=== PATIENT | female | born 1985 | race Asian ===

== ENCOUNTER 2020-11-21 08:41 | Outpatient (RCR) | payer OTHER, SELFPAY ==
[2020-10-24 09:34] VITALS: BP 105/64; PULSE 76
[2020-10-31 08:39] VITALS: BP 103/69; PULSE 72
[2020-11-14 09:37] VITALS: BP 115/69; PULSE 84
[2020-11-21 09:28] VITALS: BP 106/60; PULSE 79
== END 2020-12-01 07:51 | disposition home or self-care (01) ==
LOC: ANHOBOP 08:41
PROVIDERS: PCP Family Medicine; Visit Provider Obstetrics & Gynecology
DX: O24.419 Gestational diabetes mellitus in pregnancy, unspecified control (principal); Z3A.34 34 weeks gestation of pregnancy; Z3A.35 35 weeks gestation of pregnancy; Z3A.36 36 weeks gestation of pregnancy; Z3A.37 37 weeks gestation of pregnancy; Z3A.38 38 weeks gestation of pregnancy
CPT/HCPCS: 59025

== ENCOUNTER 2020-11-30 05:52 | Inpatient (IN) | payer OTHER, SELFPAY ==
[2020-11-30] VITALS (62 sets, daily range): BP systolic 69–146; BP diastolic 47–95; PULSE 57–136; RESP 16; TEMP 36–36.6; O2SAT 100; BMI 27.2
[2020-11-30 06:42] LABS: Basophils Percent Auto 0.5 % (0.2-1.2); Eosinophils Absolute Auto 0.1 K/mm3 (0-0.3); Eosinophils Percent Auto 1.5 % (0-4.4); Hematocrit 38.7 % (37.0-47.0); Immature Granulocyte Percent A 1.2 % (0-0.5); Lymphocytes Percent Auto 18.6 % (18.3-44.2); Mean Corpuscular HGB Conc 33.6 g/dl (32-36); Mean Corpuscular Hemoglobin 30.9 pg (26-34); Mean Corpuscular Volume 91.9 fl (80-100); Mean Platelet Volume 10.9 fl (7.4-10.4); Monocytes Absolute Auto 0.4 K/mm3 (0.1-0.6); Monocytes Percent Auto 5.5 % (2.6-8.5); Neutrophils Absolute Auto 5.9 K/mm3 (1.3-6.7); Neutrophils Percent Auto 72.7 % (45.5-73.1); Platelet Count Result 142 k/mm3 (150-375); Red Blood Count 4.21 M/mm3 (4.2-5.4); Red Cell Distribution Width 13.3 % (11.5-14.5); White Blood Count 8.1 K/mm3 (4.5-10.0)
--- NOTE | 2020-11-30 06:48 | LDADM ---
This patient, Lydia English, was admitted to Labor/Delivery/Recovery 103 on 11/30/20 at 05:52. Plans for labor, pain management and were discussed with patient. Patient/family oriented to hospital policies and general routines including ID bracelet, bed and alarms, visiting hours, pain management, procedures, bathroom and other care routines, personal items, smoking policy, room service/diet and guest tray routines, security routines, and visiting hours. Patient/Family are encouraged to report perceived risks to care and to ask questions if they do not understand what they are told or what they should do. See OBIX for further documentation.
[2020-11-30] MEDS: OXYTOCIN 30 UNITS/NS 500 ML 30 UNITS/500 ML BAG IV CONT (06:55)
[2020-11-30] MEDS: LACTATED RINGERS 1,000 ML 125 ML IV CONT ×2 (06:55→10:03)
[2020-11-30 07:07] LABS: Glucose Point of Care 143 mg/dl (65-105)
--- NOTE | 2020-11-30 08:50 | PM.IMHP ---
H&P: HPI History of Present Illness Date/Time: 11/30/20 08:45 Lydia is a 35yo @ 39.2wks (HARSHAD 12/05/20) who presents for induction of labor due to A2GDM. She has had regular and care. She reports good movement. She has been having irregular contractions. She denies VB or LOF. She has been started on pitocin augmentation. Her has been complicated by: - A2GDM on insulin - Polyhydramnios - Mild anemia on iron Chief Complaint: induction of labor Review of Systems Review of Systems: All systems reviewed & are unremarkable except as noted in HPI and below (HPI) [facility] Family History Family History (Updated 11/14/20 @ 09:28 by Pamela Sneed RN) Grandparent Diabetes mellitus Mother Hypertension Mother Polycystic kidney disease Father Heart block bundle branch Social History Social History Smoking status: Former smoker Smoking end date: 02/04/20 Substance use: never Gender identity (if verbalized by the patient): Female Sexual Orientation (if Verbalized by the Patient): Straight or Heterosexual Spiritual care concerns: No Meds Home Medications and Allergies Home Medications Medication Instructions Recorded Confirmed Type insulin glargine [Lantus U-100 8 unit SUBCUT QPM 10/24/20 11/30/20 History Insulin] ferrous sulfate 27 mg PO DAILY 11/14/20 11/30/20 History insulin lispro [Humalog U-100 6 unit SUBCUT QACDINNER 11/14/20 11/30/20 History Insulin] prenat.vits,hortensia,[id number] 1 tablet PO DAILY 11/14/20 11/30/20 History [ Vitamin] Allergies Allergy/AdvReac Type Severity Reaction Status Date / Time No Known Allergies Allergy Verified 11/14/20 09:29 Vital Signs Vital Signs - 24 hr 11/30/20 06:31 11/30/20 06:46 11/30/20 07:16 Pulse Rate 81 81 84 Blood Pressure 111/67 120/81 125/75 11/30/20 07:31 11/30/20 07:46 Pulse Rate 72 77 Blood Pressure 106/67 108/75 Exam Const: General: cooperative, healthy appearing, comfortable and no acute distress Resp: Effort & Inspection: normal respiratory effort and able to speak in complete sentences Cardio: Rate: regular rate GI: Inspection: normal to inspection GI Palp: No abdominal tenderness and Yes Soft to palpation : Other: FHT's: 140's/ mod masha/ + accels/ occasional variable decels - cat 2 but reassuring TOCO: ctx's q3-4min Cervix: 1.5/70/-1 Membranes: AROM, clear 0845 Presentation: cephalic Skin: General skin exam: normal color Neuro: General: patient oriented x3 Extrem: General: normal to inspection Psych: Appearance: grossly normal Affect: normal affect Attitude: cooperative H&P: Results Labs Labs: Short CBC 11/30/20 Range/Units 06:30 WBC 8.1 (4.5-10.0) K/mm3 Hgb 13.0 (12.0-15.0) g/dL Hct 38.7 (37.0-47.0) % Plt Count 142 L (150-375) k/mm3 Assessment and Plan Assessment and plan (1) Gestational diabetes: Code(s): O24.419 - Gestational diabetes mellitus in , unspecified control Status: Acute Assessment and Plan: - Admit to L&D for IOL due to A2GDM - BS monitoring q4h while in latent phase; q2h while in active labor - Pitocin augmentation per protocol - Continuous monitoring; currently reassuring - Anesthesia consult PRN pain - GBS negative
--- NOTE | 2020-11-30 08:50 | WPDHPUPDATE1 ---
History and Physical Update Update Date/Time: 11/30/20 08:50 History and Physical has been reviewed, including an updated exam of the patient. There are NO changes in the patient's condition. Risks, benefits, and alternatives have been discussed and questions answered. Patient agrees to proceed with procedure.
--- NOTE | 2020-11-30 10:09 | WPDANESEPP ---
Anes - Eval Pre Procedure Procedure: labor epidural Date/Time: 11/30/20 10:09 Surgeon: dorian Pre Op Diagnosis: Induction of Labor Patient Data Age: 35 Gender: F Height: 1.57 m Weight: 67.5 kg Last Vital Signs Pulse 72 11/30/20 10:01 BP 124/83 11/30/20 10:01 Allergies Allergy/AdvReac Type Severity Reaction Status Date / Time No Known Allergies Allergy Verified 11/14/20 09:29 Home Medications Medication Instructions Recorded Confirmed Type insulin glargine [Lantus U-100 8 unit SUBCUT QPM 10/24/20 11/30/20 History Insulin] ferrous sulfate 27 mg PO DAILY 11/14/20 11/30/20 History insulin lispro [Humalog U-100 6 unit SUBCUT QACDINNER 11/14/20 11/30/20 History Insulin] prenat.vits,hortensia,dce-mbra-wpxqo 1 tablet PO DAILY 11/14/20 11/30/20 History [ Vitamin] Laboratory Tests 11/30/20 11/30/20 11/30/20 06:30 06:30 06:30 WBC 8.1 K/mm3 K/mm3 (4.5-10.0) RBC 4.21 M/mm3 M/mm3 (4.2-5.4) Hgb 13.0 g/dL g/dL (12.0-15.0) Hct 38.7 % % (37.0-47.0) MCV 91.9 fl fl (80-100) MCH 30.9 pg pg (26-34) MCHC 33.6 g/dl g/dl (32-36) RDW 13.3 % % (11.5-14.5) Plt Count 142 k/mm3 L k/mm3 (150-375) MPV 10.9 fl H fl (7.4-10.4) Immature Gran % (Auto) 1.2 % H % (0-0.5) Neut % (Auto) 72.7 % % (45.5-73.1) Lymph % (Auto) 18.6 % % (18.3-44.2) Rhea % (Auto) 5.5 % % (2.6-8.5) Eos % (Auto) 1.5 % % (0-4.4) Baso % (Auto) 0.5 % % (0.2-1.2) Lymph # (Auto) 1.50 K/mm3 K/mm3 (0.9-3.2) Rhea # (Auto) 0.4 K/mm3 K/mm3 (0.1-0.6) Eos # (Auto) 0.1 K/mm3 K/mm3 (0-0.3) Baso # (Auto) 0.0 K/mm3 K/mm3 (0.0-0.1) Abs Immat Gran (auto) 0.10 K/mm3 H K/mm3 (0.00-0.031) Absolute Neuts (auto) 5.9 K/mm3 K/mm3 (1.3-6.7) Absolute Nucleated RBC 0.0 K/mm3 K/mm3 (0.0-0.012) Nucleated RBC % 0.0 % % (0.0-0.2) POC Capillary Glucose RPR Pending Blood Type O Positive Antibody Screen Negative 11/30/20 06:46 WBC RBC Hgb Hct MCV MCH MCHC RDW Plt Count MPV Immature Gran % (Auto) Neut % (Auto) Lymph % (Auto) Rhea % (Auto) Eos % (Auto) Baso % (Auto) Lymph # (Auto) Rhea # (Auto) Eos # (Auto) Baso # (Auto) Abs Immat Gran (auto) Absolute Neuts (auto) Absolute Nucleated RBC Nucleated RBC % POC Capillary Glucose 143 mg/dl H mg/dl (65-105) RPR Blood Type Antibody Screen Patient hx anesthesia problems: none Family hx anesthesia problems: none [facility] Family History Family History (Updated 11/14/20 @ 09:28 by Pamela Sneed RN) Grandparent Diabetes mellitus Mother Hypertension Mother Polycystic kidney disease Father Heart block bundle branch Social History Social History Smoking status: Former smoker Smoking end date: 02/04/20 Substance use: never Gender identity (if verbalized by the patient): Female Sexual Orientation (if Verbalized by the Patient): Straight or Heterosexual Spiritual care concerns: No Exam Day of Procedure 11/30/20 10:09
[2020-11-30 10:31] LABS: Glucose Point of Care 74 mg/dl (65-105)
--- NOTE | 2020-11-30 13:09 | PM.OBPRVD ---
OB - Delivery Note Procedure Delivery date: 11/30/20 events: Gestational Diabetes (on insulin), Labor Induction and Polyhydramnios Intrapartal events: Precipitous Labor < 3 hours Induction method: per pitocin protocol Delivery augmentation: rupture of membranes Delivery monitor: external FHT and external uterine Route of delivery: Episiotomy description: Right Mediolateral Laceration Description: Periurethral (bilateral) and Perineal - 2nd Degree Delivery repair: vicryl Specimen: Yes Quantitative Blood Loss (ml): 300 Anesthesia type: Epidural Disposition: floor [place] Baby Date of : 11/30/20 Time of : 12:37 Weeks of gestation at delivery: 39 (.3) gender: Female Weight (pounds): 6 Weight (ounces): 5 presentation: vertex position: Left Occiput Anterior Placenta delivery description: Expressed cord vessel description: 3 Vessels score one minute: 9 score five minutes: 9 Narrative: Lydia rapidly progressed to complete dilation with strong desire to push. She pushed for approximately 30 minutes. The introitus was noted to be extremely small, with minimal stretching. Patient had pushed for approximately 3 contractions and was unable to deliver the head over the perineum and was in significant pain. Patient was counseled for small right mediolateral episiotomy, and agreed. A small right mediolateral episiotomy was made and with the next push, she delivered the head. She easily delivered the shoulders and body without complications. A short umbilical cord was noted, therefore the umbilical cord was clamped and cut. The infant had spontaneous cry and was then placed skin to skin. A small segment of the cord was collected for cord gases. The remaining cord blood was collected for typing. With Pitocin running and gentle downward traction on the cord, the placenta delivered without complications. Bimanual massage was performed and good uterine tone with minimal bleeding was noted. The cervix, vagina, and perineum were examined. The right mediolateral episiotomy which was noted to be a second-degree laceration that extended into the left labia. There were also bilateral periurethral lacerations. The second-degree laceration was repaired in the normal fashion using 2 0 Vicryl. The bilateral periurethral lacerations were noted to be bleeding and therefore reapproximated using two separate 3 0 Vicryl U stitches. Bimanual massage was once again performed and a small amount of clots were removed however uterus was then found to be well contracted with minimal bleeding. Sponge, lap, instrument, and needle counts were correct at the end of the procedure. Mom and baby were left bonding in the birthing suite in a stable condition.
[2020-11-30] MEDS: OXYTOCIN 30 UNITS/NS 500 ML 30 UNITS/500 ML BAG 125 UNITS IV CONT (13:13)
[2020-11-30] MEDS: WITCH HAZEL 40 PADS 1 PAD TOPICAL (14:44)
[2020-11-30] MEDS: BENZOCAINE 20% AER SPR (*SP) 56 GM CAN 1 SPRAY TOPICAL (14:44)
[2020-11-30] MEDS: IBUPROFEN 600 MG TABLET PO (17:20)
[2020-11-30] MEDS: DOCUSATE SODIUM 100 MG CAPSULE PO (17:21)
[2020-12-01] MEDS: IBUPROFEN 600 MG TABLET PO ×2 (00:01→07:26)
[2020-12-01 00:09] VITALS: BP 136/66; PULSE 74; RESP 18; TEMP 36.7
[2020-12-01 04:30] VITALS: BP 121/70; PULSE 71; RESP 16; TEMP 36.9
[2020-12-01] MEDS: ACETAMINOPHEN 325 MG TABLET 650 MG PO (04:31)
[2020-12-01 05:51] LABS: Hematocrit 37.8 % (37.0-47.0); Hemoglobin 12.2 g/dL (12.0-15.0)
[2020-12-01] MEDS: DOCUSATE SODIUM 100 MG CAPSULE PO (07:25)
[2020-12-01] MEDS: MULTIVIT/MIN/PREN/FOL AC/IRON TABLET 1 TAB PO (07:25)
[2020-12-01 07:51] VITALS: BP 116/64; PULSE 73; RESP 18; TEMP 36.4; O2SAT 100
--- NOTE | 2020-12-01 07:57 | WPDANLDPN2 ---
Anes-Prog Note L&D Date/Time: 12/01/20 07:57 Comfortable throughout: labor and delivery Neuraxial method: epidural Epidural/Spinal procedure site: clean & non-tender Neuro status: Neuro function grossly intact. Cardiovascular status: normal Respiratory status: normal Airway patency: baseline Mental status: baseline Post-Op hydration status: normal Vital Signs: Last Vital Signs Temp 98.5 F 12/01/20 04:30 Pulse 71 12/01/20 04:30 Resp 16 12/01/20 04:30 BP 121/70 12/01/20 04:30 Pulse Ox 100 11/30/20 21:23 Pain score (VAS): 0 I/O: Intake & Output 11/30/20 11/30/20 12/01/20 15:59 23:59 07:59 Intake Total 2500 Output Total 380 Balance 2120 Post-procedural complaints: none Patient feedback: Patient satisfied with anesthetic care.
--- NOTE | 2020-12-01 08:05 | PC.NURSE ---
Mother called out for assist with feeding, reporting is sleepy and not waking for feeding. Mother has sore nipples bilateral, with small scabbing to tip. Discussed the importance of a deep latch for her comfort and increase intake Nipple care reviewed of lanolin after feedings, warm compresses and gel pads as needed. Mother breastfed first child after several days due to transferred to NICU. Reviewed feeding cues, frequencies, duration of feedings, feeding elimination flow sheet, and signs of adequate intake. Demonstrated stimulation techniques to wake infant for feeding. Assisted with infant to breast. Reviewed positioning/alignment in cross cradle, holding breast in ?U? hold and guided asymmetrical latch on. Several attempts before able to latch correctly. Small amount of formula to nipple to entice to suckle. Infant nursed eagerly, with steady draws and frequent swallowing noted. Reviewed signs of a correct latch, effective nursing and suck swallow ratio. would slip to shallow latch, mother reports tenderness. Demonstrated how to adjust latch more deeply while feeding. Mother reports she can feel change in latch and has no tenderness. Advised to hold breast during entire feeding to assist with maintaining deep latch. Suggested mother stimulate while feeding to increase stimulate, increase intake and to assist with maintaining deep latch.
[2020-12-01 08:25] LABS: Rapid Plasma Reagin Non-Reactive (NonReactive)
--- NOTE | 2020-12-01 08:30 | PM.OBPNVD ---
OB - PN: Subj Subjective Date/time seen: 12/01/20 08:30 PPD#1 Lydia reports doing well today. She reports her pain is controlled w/ PO meds. She reports her bleeding is light. She has tolerated regular diet. She has ambulated, voided, and passed gas. She denies symptoms of anemia. She is breast feeding. She would like to go home today. She denies CP, SOB, fever, chills, N/V, headaches, vision changes, dizziness or palpitations. OB - PN: Obj Data Labs CBC & Chem 7: 12/01/20 04:25 Labs: Laboratory Results - last 24 hr 11/30/20 11/30/20 12/01/20 06:30 10:28 04:25 Hgb 12.2 Hct 37.8 POC Capillary Glucose 74 RPR Non-reactive OB - PN A/P Assessment and Plan (1) Vaginal delivery: Code(s): O80 - Encounter for full-term uncomplicated delivery Status: Acute Plan day: 1 Plan: routine care and discharge home Comments: - f/u 4 wks - ER return precautions: fever, n/v/abd pain, HTN, bleeding - Pelvic rest, take meds as prescribed. Time Spent With Patient Time: Total time spent is greater than 50% in coordination of care (as documented) at patient's floor/unit and/or counseling patient: Review of Systems Review of Systems: All systems reviewed & are unremarkable except as noted in HPI and below (HPI) Exam Const: General: cooperative, healthy appearing, comfortable and no acute distress Resp: Effort & Inspection: normal respiratory effort and able to speak in complete sentences Auscultation: clear to auscultation bilaterally Cardio: Rate: regular rate GI: Inspection: normal to inspection and non-distended GI Palp: No abdominal tenderness and Yes Soft to palpation : Other: fundus firm Skin: General skin exam: normal color Neuro: General: patient oriented x3 Extrem: General: normal to inspection Psych: Appearance: grossly normal Affect: normal affect Attitude: cooperative
--- NOTE | 2020-12-01 10:00 | PC.NURSE ---
Patient viewed the discharge video Mother & Baby Care, The First Two Weeks . Patient was given the opportunity and encouraged to ask questions. Patient verbalized understanding of information shared and has been given the mother/baby guide for home reference.
--- NOTE | 2020-12-01 11:18 | PC.NURSE ---
Self care and infant care discharge instructions given including follow up visit date and time. Mother verbalized understanding. No questions or concerns. Very pleasant and cooperative.
[2020-12-01 12:22] VITALS: BP 108/56; PULSE 77; RESP 16; TEMP 36.9; O2SAT 98
[2020-12-01] MEDS: TETANUS,DIPHTHERIA,AC PERTUSSIS ADULT (0.5 ML) BOOSTRIX IM (12:36)
[2020-12-02 10:52] VITALS: BP 113/72; PULSE 64; RESP 16; TEMP 36.6; O2SAT 99
--- NOTE | 2020-12-09 14:00 | PM.OBDSVD ---
DS: Admitting Diagnosis Admitting Diagnosis Admitting Diagnosis: induction of labor DS: Discharge Diagnosis Discharge Diagnosis (1) Vaginal delivery: Code(s): O80 - Encounter for full-term uncomplicated delivery Status: Acute (2) Gestational diabetes: Qualifiers: Gestational diabetes mellitus control: insulin-controlled Trimester: third trimester Qualified Code(s): O24.414 - Gestational diabetes mellitus in , insulin controlled Code(s): O24.419 - Gestational diabetes mellitus in , unspecified control Status: Acute OB - DS: Summary OB Procedures : NST and Ultrasound OB Procedures Intrapartum: Spontaneous Vag Delivery OB Procedures: : None Peripartum Data Delivery Method: Natural Vaginal Episiotomy description: Right Mediolateral complications: none 1: Gender: Female Disposition of : home Status at Discharge Functional status at discharge: independent ambulation Overall status at discharge: patient is back to baseline Time Spent with Patient Time attestation: Total time spent providing and/or coordinating discharge services: Time spent: Less than 30 minutes Exam Const: General: cooperative, healthy appearing and comfortable Resp: Effort & Inspection: normal respiratory effort and able to speak in complete sentences Auscultation: clear to auscultation bilaterally Cardio: Rate: regular rate GI: Inspection: normal to inspection and non-distended GI Palp: No abdominal tenderness and Yes Soft to palpation : Other: fundus firm Skin: General skin exam: normal color Neuro: General: patient oriented x3 Extrem: General: normal to inspection Psych: Appearance: grossly normal Affect: normal affect Attitude: cooperative DS: Data Data Completed and Pending Completed studies during hospitalization: Pending at discharge 11/30/20 13:33 Surgical [PTH] Routine Discharge Plan Discharge Attending physician on discharge: Sylvia Foy Discharging Clinician: Syvlia Foy Anticipated Discharge Date/Time: 12/01/20 16:00 Patient Disposition: Home, Self-Care Activity: pelvic rest Diet: regular Discharge Instructions: Education: Mom and Baby Guide Given to: Mother Follow-Up: Call your delivering provider's office for an appointment to be seen in: 4 Weeks Mom and baby should come to the [facility] for the follow-up appointment. Appointment Date/Time: Wednesday, December 02, 2020 at 11:00 am What to expect at your follow-up visit: Blood Pressure Check Physical Assessment Call [phone] if you are unable to keep your appointment time. BREAST CARE: * Wear a snug supportive bra. * For engorgement discomfort: Breast Feeding: * Apply warm moist washcloths * Express milk as needed to relieve engorgement * Wear loose clothing * For sore nipples: * Identify correct latch-on * Apply warm moist washcloths before and after nursing * Air dry nipples after nursing * May apply Lansinoh cream to nipples EPISIOTOMY/PERINEAL CARE: * Until bleeding stops, use your cristian bottle after urinating * Change your pad frequently throughout the day * You may take sitz baths several times a day (fill your bathtub with warm water and soak for 20 minutes.) Do NOT bathe in the water * No tub baths until seen by your physician - You may shower ACTIVITY: * Rest as much as possible. * Do not exercise or lift anything heavier than your baby (such as laundry or other children.) * Avoid stairs or driving as much as possible. * Do not put anything into the vagina. No douching, tampons, or sexual activity until seen by physician. NOTIFY PHYSICIAN IF YOU HAVE ANY QUESTIONS OR IF ANY OF THE FOLLOWING SYMPTOMS OCCUR: * If your episiotomy becomes red, swollen, or more painful than what you
== END 2020-12-01 16:07 | disposition home or self-care (01) | DRG 807 ==
LOC: ANHLDR 06:01 → ANHOB2 15:19
PROVIDERS: Admitting Provider Obstetrics & Gynecology; PCP Family Medicine; Visit Provider Obstetrics & Gynecology
DX: O24.424 Gestational diabetes mellitus in childbirth, insulin controlled (principal); Z37.0 Single live birth; O40.3XX0 Polyhydramnios, third trimester, not applicable or unspecified; O99.02 Anemia complicating childbirth; D64.9 Anemia, unspecified; O62.3 Precipitate labor; O71.82 Other specified trauma to perineum and vulva; O70.1 Second degree perineal laceration during delivery; O76 Abnormality in fetal heart rate and rhythm complicating labor and delivery; Z3A.39 39 weeks gestation of pregnancy
CPT/HCPCS: 36415; 82948; 85014; 85018; 85025; 86592; 86850; 86900; 86901; 88307; 90715; A9270; J2590; J2795; J7120

== ENCOUNTER → 2022-02-28 | Emergency (ER) | payer SELFPAY ==
[2022-02-28 19:35] VITALS: BP 144/115; PULSE 87; RESP 16; O2SAT 100
--- NOTE | 2022-02-28 19:39 | ECG_ITS ---
Measurements Intervals [place] Rate: 91 P: 64 [place]: 142 QRS: 62 QRSD: 78 T: 41 QT: 341 QTc: 421 Interpretive Statements SINUS RHYTHM RSR' IN V1 OR V2, PROBABLY NORMAL VARIANT BORDERLINE T WAVE ABNORMALITY- ANTERIOR LEADS BORDERLINE ECG NO PREVIOUS ECG AVAILABLE FOR COMPARISON Electronically Signed On 03-01-2022 6:58:03 CDT by Delbert Musa D.O.
--- NOTE | 2022-02-28 19:41 | ED.GENADULT ---
HPI - General Adult General Chief complaint: Psychiatric Symptoms Stated complaint: SI, ETOH History of Present Illness HPI narrative: 37-year-old female presented to the emergency department for evaluation for suicidal ideation. Patient does admit to drinking a bottle of wine today. Patient did make a suicidal statement. When asked if patient was still suicidal and she did not answer. When asked what her plan was patient states she is waiting for the perfect plan needs to make sure that her and children are taking care of. Patient did not deny making suicidal statements and did not denies any current suicidal ideation. Patient is intoxicated. Related Data Allergies Allergy/AdvReac Type Severity Reaction Status Date / Time No Known Allergies Allergy Verified 06/15/21 14:25 Review of Systems Review of Systems: CONSTITUTIONAL: Denies fever, chills, or sweats. EYES: Denies visual changes, redness, or discharge. ENT: Denies rhinorrhea, congestion, sore throat, or otalgia. CARDIOVASCULAR: Denies chest pain, palpitations, or edema. RESPIRATORY: Denies cough or dyspnea. GASTROINTESTINAL: Denies abdominal pain, nausea, vomiting, or diarrhea. GENITOURINARY: Denies dysuria or hematuria. SKIN: Denies rash or itching. MUSCULOSKELETAL: Denies back pain, joint pain, or myalgia. NEUROLOGIC: Denies headache, numbness, or weakness. PSYCHIATRIC: See HPI PMF Family History Family History Grandparent Diabetes mellitus Mother Hypertension Mother Polycystic kidney disease Father Heart block bundle branch Social History Social History Smoking status: Former smoker Smoking end date: 02/04/20 Substance use: never Substance use type: does not use Gender identity (if verbalized by the patient): Female Sexual Orientation (if Verbalized by the Patient): Straight or Heterosexual Spiritual care concerns: No Exam Narrative: APPEARANCE: Well appearing, no pain, no distress, well-nourished. HEAD: normocephalic, atraumatic. EYES: PERRLA/EOMI, conjunctivae clear. NOSE: Normal no drainage THROAT: Pharynx clear, no exudate. NECK: Supple. No adenopathy, no masses. RESPIRATORY: Airway patent, respirations nonlabored. Clear to auscultation bilaterally, no rales, rhonchi, wheezing. CARDIOVASCULAR: Regular rate and rhythm without murmurs rubs or gallops. ABDOMINAL: Soft, nontender, nondistended, normal bowel sounds MUSCULOSKELETAL: Moves all extremities. Strength/ROM intact, No edema, No calf tenderness. NEURO: Alert. Cranial nerves II through XII intact. Grossly intact SKIN: Warm, dry. Normal Color Course Course Emergency Course: Patient was evaluated by the crisis counselor and patient states she does feel overworked but denies any current suicidal thoughts. Patient will have close follow-up with counseling. Patient was comfortable with the plan for discharge and close follow-up. Reevaluation(s) Reevaluation #1: Patient is medically cleared for evaluation by the crisis counselor. Patient is also medically cleared for inpatient psychiatric placement as needed. Vital Signs Vital signs: Vital Signs Pulse Rate 87 02/28/22 19:35 Respiratory Rate 16 02/28/22 19:35 Blood Pressure 144/115 H 02/28/22 19:35 Pulse Oximetry 100 02/28/22 19:35 Pulse Rate 87 02/28/22 19:35 Respiratory Rate 16 02/28/22 23:31 Blood Pressure 113/85 02/28/22 23:31 Pulse Oximetry 100 02/28/22 23:31 Medical Decision Making Vital Signs Vital Signs: Vital Signs Pulse Rate 87 02/28/22 19:35 Respiratory Rate 16 02/28/22 19:35 Blood Pressure 144/115 H 02/28/22 19:35 Pulse Oximetry 100 02/28/22 19:35 Pulse Rate 87 02/28/22 19:35 Respiratory Rate 16 02/28/22 23:31 Blood Pressure 113/85 02/28/22 23:31 Pulse Oximetry 100 02/28/22 23:31 Lab Data Lab results reviewed: Yes I
[2022-02-28 20:15] LABS: Appearance Urine Clear (Clear); Bilirubin Urine Negative (Negative); Blood Urine Negative (Negative); Color Urine Yellow (Yellow); Glucose Urine UA Negative (Negative); Ketones Urine Negative (Negative); Leukocyte Esterase Ur Negative LEU/UL (Negative); Nitrate Urine Negative (Negative); Protein Urine Negative (Negative); Urobilinogen Urine 0.2 mg/dL (<2.0); pH Urine 5.5 (5.0-9.0)
[2022-02-28 20:25] LABS: Add Urine Microscopic? YES; Mucus Urine Rare /lpf; RBC Urine 0-2 /hpf (0-2); Squamous Epithelial Cell Urine Occasional /hpf (Few); WBC Urine 0-3 /hpf
[2022-02-28 20:27] LABS: Basophils Percent Auto 0.6 % (0.2-1.2); Eosinophils Absolute Auto 0.2 K/mm3 (0-0.3); Eosinophils Percent Auto 4.3 % (0-4.4); Hematocrit 41.9 % (37.0-47.0); Hemoglobin 13.5 g/dL (12.0-15.0); Immature Granulocyte Absolute 0.01 K/mm3 (0.00-0.031); Immature Granulocyte Percent A 0.2 % (0-0.5); Lymphocytes Absolute Auto 1.18 K/mm3 (0.9-3.2); Lymphocytes Percent Auto 23.9 % (18.3-44.2); Mean Corpuscular HGB Conc 32.2 g/dl (32-36); Mean Corpuscular Hemoglobin 28.6 pg (26-34); Mean Corpuscular Volume 88.8 fl (80-100); Mean Platelet Volume 9.6 fl (7.4-10.4); Monocytes Absolute Auto 0.3 K/mm3 (0.1-0.6); Monocytes Percent Auto 6.9 % (2.6-8.5); Neutrophils Absolute Auto 3.2 K/mm3 (1.3-6.7); Neutrophils Percent Auto 64.1 % (45.5-73.1); Platelet Count Result 220 k/mm3 (150-375); Red Blood Count 4.72 M/mm3 (4.2-5.4); Red Cell Distribution Width 12.2 % (11.5-14.5); White Blood Count 4.9 K/mm3 (4.5-10.0)
[2022-02-28 20:37] LABS: Alanine Aminotransferase 38 U/L (6-35); Albumin Level 4.5 g/dL (3.5-5.1); Alkaline Phosphatase 92 U/L (38-126); Anion Gap 13 mmol/L (8-16); Aspartate Amino Transferase 59 U/L (14-36); Bilirubin,Total 0.6 mg/dL (0.2-1.3); Blood Urea Nitrogen 8 mg/dL (7-17); Calcium 8.8 mg/dL (8.4-10.2); Carbon Dioxide 20 mmol/L (22-30); Chloride 111 mmol/L (98-107); Estimated Glomerular Filt Rate > 60; Glucose 99 mg/dL (65-110); Potassium 3.8 mmol/L (3.4-5.0); Sodium 144 mmol/L (137-145)
[2022-02-28 20:40] LABS: Acetaminophen < 10 ug/mL (10-30); Ethanol 133 mg/dL (<10); Salicylate < 1.0 mg/dL (2-20)
[2022-02-28 20:42] LABS: Amphetamine Screen Urine Negative (Negative); Barbiturate Screen Urine Negative (Negative); Benzodiazepines Screen Urine Negative (Negative); Cannabinoid Screen Urine Negative (Negative); Cocaine Screen Urine Negative (Negative); Methadone Screen Urine Negative (Negative); Opiate Screen Urine Negative (Negative); Phencyclidine Screen Urine Negative (Negative)
[2022-02-28 20:44] LABS: SARS-CoV-2 RNA PCR Negative
[2022-02-28 21:08] LABS: Thyroid Stimulating Hormone 0.717 uIU/mL (0.465-4.680)
[2022-02-28 22:31] VITALS: BP 113/65; O2SAT 100
[2022-02-28 23:01] VITALS: BP 98/56; RESP 12; O2SAT 100
[2022-02-28 23:31] VITALS: BP 113/85; RESP 16; O2SAT 100
[2022-02-28 23:51] LABS: Ethanol 61 mg/dL (<10)
--- NOTE | 2022-03-01 03:07 | PC.NURSE ---
Patient report received from KEYONNA [place]. All questions answered and care of patient assumed. Leydi with [place] at bedside to assess pt.
[2022-03-01] MEDS: ACETAMINOPHEN 500 MG TABLET 1000 MG PO (04:44)
[2022-03-01] MEDS: ONDANSETRON HCL ODT 4 MG TABLET PO (04:54)
== END | disposition home or self-care (01) ==
PROVIDERS: Emergency Provider Emergency Medicine
DX: R45.851 Suicidal ideations (principal); Z20.822 Contact with and (suspected) exposure to COVID-19; Z87.891 Personal history of nicotine dependence; R94.31 Abnormal electrocardiogram [ECG] [EKG]
CPT/HCPCS: 36415; 80053; 80307; 81001; 81025; 84443; 85025; 93005; 99284; A9270; C9803; U0003; U0005

== ENCOUNTER 2024-05-27 14:22 | Outpatient (CLI) | payer OTHER, SELFPAY ==
--- NOTE | ~2024-05-27 | US_ITS ---
EXAMINATION: US OB follow up DATE: 05/27/2024 15:23 INDICATION: Encounter for supervision of normal . TECHNIQUE: Real-time pelvic ultrasound utilizing both a transvaginal and transabdominal probe was pe rformed. The interpreting radiologist was not present for the study. COMPARISON: None. FINDINGS: The uterus measures 17.2 x 7.2 x 11.0 cm. There is an intrauterine gestational sac with single fetus . The crown rump length measures 8.7 cm, which correlates with an estimated gestational age of 14 wee ks and 4 days. heart motion is identified measuring 168 beats per minute (bpm) by M-mode Dopple r. The bilateral ovaries are not visualized. There is no free fluid in the pelvis. IMPRESSION: 1. Single living fetus with heart rate of 168 bpm. 2. Gestational age by ultrasound of 14 weeks 5 day(s) +/- 1 week and 2 day(s) with ultrasound estima kiko date of delivery (AHRSHAD) of 11/21/2024. Reviewed, dictated and finalized at location B. ING TESTER IMPRESSION: 1. Single living fetus with heart rate of 168 bpm. 2. Gestational age by ultrasound of 14 weeks 5 day(s) +/- 1 week and 2 day(s) with ultrasound estimated date of delivery (HARSHAD) of 11/21/2024.
== END 2024-05-27 14:23 | disposition home or self-care (01) ==
PROVIDERS: Visit Provider Obstetrics & Gynecology
DX: O09.529 Supervision of elderly multigravida, unspecified trimester (principal); O24.419 Gestational diabetes mellitus in pregnancy, unspecified control; Z3A.00 Weeks of gestation of pregnancy not specified
CPT/HCPCS: 76816

== ENCOUNTER 2024-06-24 16:54 | Outpatient (CLI) | payer OTHER, SELFPAY ==
[2024-06-24 18:11] LABS: Basophils Percent Auto 0.2 % (0.2-1.2); Eosinophils Absolute Auto 0.2 K/mm3 (0-0.3); Eosinophils Percent Auto 2.1 % (0-4.4); Hemoglobin 11.5 g/dL (12.0-15.0); Immature Granulocyte Absolute 0.06 K/mm3 (0.00-0.031); Immature Granulocyte Percent A 0.6 % (0-0.5); Lymphocytes Absolute Auto 1.53 K/mm3 (0.9-3.2); Lymphocytes Percent Auto 15.7 % (18.3-44.2); Mean Corpuscular HGB Conc 32.9 g/dl (32-36); Mean Corpuscular Hemoglobin 29.9 pg (26-34); Mean Corpuscular Volume 90.9 fl (80-100); Mean Platelet Volume 10.3 fl (7.4-10.4); Monocytes Absolute Auto 0.4 K/mm3 (0.1-0.6); Monocytes Percent Auto 4.4 % (2.6-8.5); Neutrophils Absolute Auto 7.5 K/mm3 (1.3-6.7); Platelet Count Result 177 k/mm3 (150-375); Red Blood Count 3.85 M/mm3 (4.2-5.4); Red Cell Distribution Width 12.6 % (11.5-14.5); White Blood Count 9.7 K/mm3 (4.5-10.0)
[2024-06-24 18:22] LABS: Glucose 1 Hour PP 50gm Dose 152 mg/dL
[2024-06-24 18:28] LABS: Hemoglobin A1C 5.5 % (<5.7)
[2024-06-24 19:04] LABS: HIV 1/2 Ab P24 Ag Result Negative (Negative)
[2024-06-24 19:17] LABS: Hepatitis B Surface Antigen Negative (Negative); Rubella IgG Antibody 32.3 IU/ML
[2024-06-25 06:50] LABS: Rapid Plasma Reagin Non-Reactive (NonReactive)
[2024-06-26 17:14] LABS: Varicella IgG Antibody 6.59 S/CO
--- OUTSIDE RECORDS SUMMARY | 2024-06-27 14:48 | XMS_ITS | Patient Health Summary ---
Author Organization [facility] Address [address] [place] [address] Care Team Providers Care Retail Management Keyholder Name Role Phone Unavailable Primary Care Provider Unavailabl e Note from [facility],non-owned Affiliates and Associated Physician Practices is amultiple site organization consisting of ambulatory clinics and hospital sitesin [place], [place], [place] and [place]. This disclosure is being madepursuant to the Care Everywhere program and may not contain all information available regarding this patient. Last updated 18.[facility] [employer] Allergies No known active allergies Medications * Be aware that medications may not be up to date on this document. Alwaysverify current medications with the patient. * Continuous Blood Gluc Sensor (FREESTYLE DAYAMI 2 SENSOR SYSTM) [facility](Started 09/30/2020) Use 2 (two) Each as directed Apply 1 Libre2 sensor q14 days. 4 refills by 09/30/2021 * Vit-Fe Fumarate-FA ( VITAMIN) 28-0.8 MG tablet Take 1 tablet by mouth once daily Reasons: * ferrous sulfate 325 (65 FE) MG tablet Take 325 mg by mouth once daily Reasons: Iron Deficiency * hydrOXYzine HCl (Atarax) 10 MG tablet(Started 03/10/2022) Take 1 (one) tablet by mouth 3 times daily Reasons: Feeling Anxious 1 refill by 03/10/2023 * methylphenidate ER (Concerta) 18 MG tablet(Started 04/13/2022) Take 1 (one) tablet by mouth every morning Reasons: Attention Deficit Hyperactivity Disorder * sertraline (Zoloft) 100 MG tablet(Started 04/13/2022) Take 1 (one) tablet by mouth once daily Reasons: Generalized Anxiety Disorder, Major Depressive Disorder 1 refill by 04/13/2023 Active Problems Problem Noted Date Diagnosed Date Major depressive disorder, recurrent 03/10/2022 Generalized anxiety disorder 03/10/2022 ADHD (attention deficit hyperactivity disorder) 03/10/2022 Encounter for screening for maternal depression 10/07/2020 GDM (gestational diabetes mellitus) 09/29/2020 Second 09/29/2020 Resolved Problems Problem Noted Date Diagnosed Date Resolved Date Polyhydramnios, antepartum complication 10/07/2020 11/04/2020 Social History Tobacco Use Types Packs/Day Years Used Date Smoking Tobacco: Some Days Cigarettes Smokeless Tobacco: Never Tobacco Cessation:Ready to Q uit: No; Counseling Given: Yes Alcohol Use Standard Drinks/Week Comments Never 0 (1 standard drink = 0.6 oz pur e alcohol) AUDIT-C Answer Date Recorded Q1: How often do you have a drink containing alcohol? Never 03/10/2022 Q2: How many drinks containi ng alcohol do you have on a typical day when you are drinking? Patient does not drink Q3: How often do you have si x or more drinks on one occasion? Never 03/10/2022 Sex and Gender Information Value Date Recorded Sex Assigned at Not on file Gender Identity Not on file Sexual Orientation Not on file Last Filed Vital Signs Vital Sign Reading Time Taken Comments Blood Pressure 136/88 03/10/2022 9:57 AM CDT Pulse 70 03/10/2022 9:57 AM CDT Temperature 36.5 ??C (97.7 ??F) 03/10/2022 9:57 AM CD T Respiratory Rate 18 03/10/2022 9:57 AM CDT Oxygen Saturation - - Inhaled Oxygen Concentration - - Weight 59 kg (130 lb) 03/10/2022 9:57 AM CDT Height 157.5 cm (5' 2 ) 03/10/2022 9:57 AM CDT Body Mass Index 23.78 03/10/2022 9:57 AM CDT Procedures * BIOPHYSICAL PROFILE W NST(Performed 11/25/2020) Performed for Gestational diabetes mellitus (GDM) in third trimester, gestational diabetes method of control unspecified (HCC), Second (HCC) * BIOPHYSICAL PROFILE W NST(Performed 11/04/2020) Performed for Polyhydramnios, antepartum, single or unspecified fetus (HCC), Gestational diabetes mellitus (GDM) in third trimester, gestational diabetes method of control unspecified (HCC), Second (HCC) * SONOGRAM - COMPLETE(Performed 10/06/2020) Performed for Second (HCC), Gestational diabetes mellitus (GDM) in third trimester, gestational diabetes method of control unspecified (HCC) Results * BIOPHYSICAL PROFILE W NST (11/25/2020 7:49 AM CDT) Only the most recent of2 resultswithin the time period is included. Anatomical Region Laterality Modality Other 11/25/2020 7:49 AM CDT Narrative 11/25/2020 3:14 PM CDT ? [facility] ? [facility] ?PHONE: ??FAX: Pat. Name: ?TATUM ENGLISH No: ?[id number] Study Date: ?? 11/25/2020 ??7:49am , Age: ? 1985, 35 Pregnancies: ?? 2, Para 1 Height: ? 62 in Weight: ? 123 lb LMP: ?02/23/2020 GA by LMP: ?39w3d GA by Base: ?? 39w3d ?? HARSHAD: 11/29/2020 GA by US: ? 36w2d ?? HARSHAD: 12/21/2020 GA Selected: ??38w4d (Outside Scan) HARSHAD: ?12/05/2020 Referring MD: Sylvia Foy MD Video Rental Clerk: ??Nhi Campos, RDMS, RDCS CPT4: ? 84368,81730 BMI: ?22.49 Hist/Ind: ? GDM-Diet Controlled MEASUREMENTS & AGE ? GROWTH EVALUATION Measurement ??GA ? Range ? Srce %for GA Ratios ----- ---- ------- BPD ??8.7 cm 35w0d (50u6n-11r3f) Hadl BPD 3% FL/BPD 0.81 (0.71 - 0.87) HC ??32.8 cm 37w2d (49a4j-38b6n) Hadl HC ??9% FL/AC ??0.20 (0.20 - 0.24) AC ??34.6 cm 38w4d (66r2u-12n9x) Hadl AC ??67% HC/AC ??0.95 (0.90 - 1.09) FL ?? 7.1 cm 36w1d (28e4l-21t0e) Hadl FL ??7% CI ? 0.73 (0.70 - 0.86) HL ?? 6.0 cm 35w0d (34m1p-49a7r) [place]ura HL ??<05 RRad 4.9 cm ? (84x8t-63u6i) Natalia RRad24% RUln 5.9 cm 37w0d (19l6w-70v4a) [place] RUln27% RTib 6.0 cm ? Ventura RTib ?? RFib 5.9 cm ? (95c3u-49j3x) Natalia RFib39% GA for sonogram 36w2d (15w4s-03b8i) ?? Weight Estimate: based on (BPD,HC,AC,FL) Hadlock ?Weight: 3197 gm (2730-3664gm) Had ? : 7lbs, 0oz ? Normal: 3353 gm (2514- 4191gm) Had ? Wt% ? 36% for 38w4d Heart Rate: 153 bpm Amniotic Fluid Index: 16.7cm (07.2-23.1) Q1: 4.8cm ??Q2: 4.3cm ??Q3: 5.4cm ??Q4: 2.3cm ?? Biophysical Profile: 03/14 Breathin ?? Tone: 2 ?? NST: 2 Movement: ??2 ?? AFV: ??2 EVAL, PLACENTA Presentation: cephalic Placenta: anterior Heart Rate: 153 bpm Amniotic Fluid Volume: normal Anatomy!Normal!Abnormal!Suboptimal!Prev. Seen!Comments Cranium ?! ?! ?! ?! ? x ?! Mdl (CSP/Thal! ?! ?! ?! ? x ?! Ventricles ?? ! ?! ?! ?! ? x ?! Choroid Plexu! ?! ?! ?! ? x ?! Cerebellum ?? ! ?! ?! ?! ? x ?! Cerebellar Ve! ?! ?! ?! ? x ?! Cisterna M. ??! ?! ?! ?! ? x ?! Orbits ? ! ?! ?! ?! ? x ?! Profile ?! ?! ?! ?! ? x ?! Nasal Bone ?? ! ?! ?! ?! ? x ?! Lip ?! ?! ?! ?! ? x ?! Maxilla ?! ?! ?! ?! ? x ?! Mandible ? ! ?! ?! ?! ? x ?! Neck ? ! ?! ?! ?! ? x ?! Spine ?! ?! ?! ?! ? x ?! Lungs ?! ?! ?! ?! ? x ?! 4 Chamber Hea! ?! ?! ?! ? x ?! LVOT ? ! ?! ?! ?! ? x ?! RVOT ? ! ?! ?! ?! ? x ?! 3 Vessel View! ?! ?! ?! ? x ?! 3 Vessel Trac! ?! ?! ?! ? x ?! Cross-over ?? ! ?? x ??! ?! ?! ?! Ductal Arch ??! ?! ?! ?! ? x ?! Aortic Arch ??! ?! ?! ?! ? x ?! Caval View ?? ! ?! ?! ?! ? x ?! Situs ?! ?! ?! ?! ? x ?! Diaphragm ?! ?! ?! ?! ? x ?! Stomach ?! ?? x ??! ?! ?! ? x ?! Liver ?! ?! ?! ?! ? x ?! Bowel ?! ?! ?! ?! ? x ?! Kidneys ?! ?? x ??! ?! ?! ? x ?! Bladder ?! ?? x ??! ?! ?! ? x ?! 3 Vessel Cord! ?! ?! ?! ? x ?! Cord In! ?! ?! ?! ? x ?! Upper Extremi! ?! ?! ?! ? x ?! Hands ?! ?! ?! ?! ? x ?! Lower Extremi! ?! ?! ?! ? x ?! Feet ? ! ?! ?! ? x ?! ?! External Grecia! ?! ?! ?! ? x ?! Placental Cor! ?! ?! ?! ? x ?! CLINICAL SUMMARY Study Number: 3 ?? A single fetus is seen in cephalic presentation. ??The measurements today are consistent with appropriate interval growth. ??The HARSHAD is based on prior ultrasound examination (confirmed). ??The amniotic fluid volume is within normal limits. ?? The FHR baseline was 130 bpm during today's reactive NST. ??The FHR variability was moderate. ?? IMPRESSION: Single, live, intrauterine at 38w4d ?? Amniotic fluid volume: within normal limits ?? Biophysical profile: Reassuring ?? size is within normal limits RECOMMEND: Continue twice weekly testing Induction scheduled for Monday Recommend clinical correlation after for the SGA head and limb measurements. Thank you for allowing us the opportunity to care for your patient. ?? Shiraz Bella MD <Electronic Signature> ??11/25/2020 03:13pm Lashell Marsh MD [facility] ORDERABLES * SONOGRAM - COMPLETE (10/06/2020 2:35 PM CDT) Anatomical Region Laterality Modality Other 10/06/2020 2:35 PM CDT Narrative 10/06/2020 4:48 PM CDT ? [facility] ? [facility] Center ?PHONE: ??FAX: Pat. Name: ?TATUM ENGLISH Pat. No: ?[id number] Study Date: ?? 10/06/2020 ??2:35pm , Age: ? 1985, 35 Pregnancies: ?? 2, Para 1 Height: ? 62 in Weight: ? 123 lb LMP: ?Unknown GA by US: ? 31w2d ?? HARSHAD: 12/06/2020 GA Selected: ??31w3d (From Known E) HARSHAD: ?12/05/2020 Referring MD: Sylvia Foy MD Video Rental Clerk: ??Glenda Arias RDMS CPT4: ? [id number] BMI: ?22.49 Hist/Ind: ? GDM-Diet Controlled MEASUREMENTS & AGE ? GROWTH EVALUATION Measurement ??GA ? Range ? Srce %for GA Ratios ----- ---- ------- BPD ??7.9 cm 31w4d (21i5i-66p3c) Hadl BPD 46% FL/BPD 0.74 (0.71 - 0.87) HC ??29.1 cm 32w0d (72j6k-15p6u) Hadl HC ??30% FL/AC ??0.21 (0.20 - 0.24) AC ??28.1 cm 32w1d (58e4z-90m0x) Hadl AC ??68% HC/AC ??1.04 (0.96 - 1.15) FL ?? 5.8 cm 30w4d (58h2b-66o7h) Hadl FL ??15% CI ? 0.76 (0.70 - 0.86) HL ?? 5.2 cm 30w2d (48r8t-77d4o) Ventura HL ??30% Cere 4.1 cm 32w5d (73c7w-93v3t) Hill Cere73% GA for sonogram 31w2d (46g3o-38g1z) ?? Weight Estimate: based on (HL,BPD,HC,AC,FL) Avg ? Weight: 1794 gm (1532-2056gm) Had ? : 3lbs, 15oz ? Normal: 1838 gm (1378- 7897gm) Had ? Wt% ? 43% for 31w3d Heart Rate: 150 bpm Amniotic Fluid Index: 25.5cm (08.7-24.0)* Q1: 8.4cm ??Q2: 6.1cm ??Q3: 4.7cm ??Q4: 6.3cm ?? Biophysical Profile: 01/10 Breathin ?? Tone: 2 ?? Movement: ??2 ?? AFV: ??2 EVAL, PLACENTA Presentation: breech Umbilical Cord: 3 Vessels Placenta: anterior Heart Rate: 150 bpm Amniotic Fluid Volume: polyhydramnios Anatomy!Normal!Abnormal!Suboptimal!Prev. Seen!Comments Cranium ?! ?? x ??! ?! ?! ?! Mdl (CSP/Thal! ?? x ??! ?! ?! ?! Ventricles ?? ! ?? x ??! ?! ?! ?! Choroid Plexu! ?? x ??! ?! ?! ?! Cerebellum ?? ! ?? x ??! ?! ?! ?! Cerebellar Ve! ?? x ??! ?! ?! ?! Cisterna M. ??! ?? x ??! ?! ?! ?! Orbits ? ! ?? x ??! ?! ?! ?! Profile ?! ?? x ??! ?! ?! ?! Nasal Bone ?? ! ?? x ??! ?! ?! ?! Lip ?! ?? x ??! ?! ?! ?! Maxilla ?! ?? x ??! ?! ?! ?! Mandible ? ! ?? x ??! ?! ?! ?! Neck ? ! ?? x ??! ?! ?! ?! Spine ?! ?? x ??! ?! ?! ?! Lungs ?! ?? x ??! ?! ?! ?! 4 Chamber Hea! ?? x ??! ?! ?! ?! LVOT ? ! ?? x ??! ?! ?! ?! RVOT ? ! ?? x ??! ?! ?! ?! 3 Vessel View! ?? x ??! ?! ?! ?! 3 Vessel Trac! ?? x ??! ?! ?! ?! Cross-over ?? ! ?! ?! ? x ?! ?! Ductal Arch ??! ?? x ??! ?! ?! ?! Aortic Arch ??! ?? x ??! ?! ?! ?! Caval View ?? ! ?? x ??! ?! ?! ?! Situs ?! ?? x ??! ?! ?! ?! Diaphragm ?! ?? x ??! ?! ?! ?! Stomach ?! ?? x ??! ?! ?! ?! Liver ?! ?! ?! ? x ?! ?! Bowel ?! ?? x ??! ?! ?! ?! Kidneys ?! ?? x ??! ?! ?! ?! Bladder ?! ?? x ??! ?! ?! ?! 3 Vessel Cord! ?? x ??! ?! ?! ?! Cord In! ?? x ??! ?! ?! ?! Upper Extremi! ?? x ??! ?! ?! ?! Hands ?! ?? x ??! ?! ?! ?! Lower Extremi! ?! ?! ? x ?! ?! Feet ? ! ?! ?! ? x ?! ?! External Grecia! ?? x ??! ?! ?! ?! Placental Cor! ?? x ??! ?! ?! ?! CLINICAL SUMMARY Study Number: 1 ?? A single fetus is seen in breech presentation. ??The measurements today are consistent with appropriate size for the HARSHAD provided. ??The HARSHAD is based on prior ultrasound examination (confirmed). ??The amniotic fluid volume is increased. ?? IMPRESSION: Single, live, intrauterine at 31w3d ?? Amniotic fluid volume: polyhydramnios ?? Biophysical profile: Reassuring; (01/10) ?? size is consistent with established HARSHAD RECOMMEND: Begin weekly testing Repeat growth assessment in 4 weeks ?? Thank you for allowing us the opportunity to care for your patient. ?? Kenrick Orosco MD <Electronic Signature> ??10/06/2020 04:48pm Sylvia Foy MD [facility] ORDERABLES
--- OUTSIDE RECORDS SUMMARY | 2024-06-27 14:48 | XMS_ITS | Referral Summary ---
Author Organization [facility] Address [facility] [place] [address] Care Team Providers Care Beach Attendant Name Role Phone Unavailable Primary Care Provider Unavailabl e Source Comments [facility],non-owned Affiliates and Associated Physician Practices is amultiple site organization consisting of ambulatory clinics and hospital sitesin [place], [place], [place] and [place]. This disclosure is being madepursuant to the Care Everywhere program and may not contain all information available regarding this patient. Last updated 18.[facility] [employer] Allergies No known active allergies Medications * Be aware that medications may not be up to date on this document. Alwaysverify current medications with the patient. Medication Sig Dispensed Refills Start Date End Date Status Continuous Blood Gluc Sensor (FREESTYLE DAYAMI 2 SENSOR SYSTM) [facility] Use 2 (two) Each as directed Apply 1 Libre2 sensor q14 days. 2 Each 4 09/30/2020 Active Additional Information Patient not taking.Reported on 03/10/2022 Vit-Fe Fumarate-FA ( VITAMIN) 28-0.8 MG tabletIndications:P regnancy Take 1 tablet by mouth once daily Reasons: Active ferrous sulfate 325 (65 FE) MG tabletIndications:I maryuri Deficiency Take 325 mg by mouth once daily Reasons: Iron Deficiency Active hydrOXYzine HCl (Atarax) 10 MG tabletIndications:A nxiety Take 1 (one) tablet by mouth 3 times daily Reasons: Feeling Anxious 90 tablet 1 03/10/2022 Active methylphenidate ER (Concerta) 18 MG tabletIndications:A ttention Deficit Hyperactivity Disorder Take 1 (one) tablet by mouth every morning Reasons: Attention Deficit Hyperactivity Disorder 30 tablet 04/13/2022 Active sertraline (Zoloft) 100 MG tabletIndications:G eneralized Anxiety Disorder,Major Depressive Disorder Take 1 (one) tablet by mouth once daily Reasons: Generalized Anxiety Disorder, Major Depressive Disorder 60 tablet 1 04/13/2022 Active Active Problems Problem Noted Date Diagnosed Date Major depressive disorder, recurrent 03/10/2022 Generalized anxiety disorder 03/10/2022 ADHD (attention deficit hyperactivity disorder) 03/10/2022 Encounter for screening for maternal depression 10/07/2020 Assessment & Plan (10/21/2020 8:48 AM CDT): Tatum's last visit was suggestive of an active mood disorder. Maternal Medicine recommendations: 1. instructed to present to the emergency room if she has feels like she might hurt herself or hurt others 2. Recommended mental health counseling--referral was initiated during today's encounter 3. Reassess mood at visits and Assessment & Plan (10/07/2020 4:32 PM CDT): Patient's review systems and [place] depression Scale score were both suggestive of an active mood disorder. I recommend mental health counseling. We also discussed that there are acceptable medications to use for depression and anxiety during . Tatum remains at risk for mood deterioration during and . Maternal Medicine recommendations: 1. instructed to present to the emergency room if she has feels like she might hurt herself or hurt others 2. Recommended mental health counseling--referral was initiated during today's encounter 3. Reassess mood at visits and GDM (gestational diabetes mellitus) 09/29/2020 Overview (09/29/2020): 1 hr: 214 (primary OB has pt checking blood sugars QID) HgA1c: 5.1 Assessment & Plan (11/18/2020 4:26 PM CDT): Less than expected growth without growth restriction Overall good glycemic control. Hypoglycemic with only protein shake for breakfast Compliant with insulin regimen. Very engaged in treating her diabetes. Reassuring testing. Maternal Medicine recommendations: 1. Maternal- Medicine to manage gestational diabetes 2. Recommend checking blood glucose 4 times daily and keeping a food diary and blood glucose log 3. Send diary and logs weekly for review to the Diabetic Nurse Educator 4. Continue Levemir 8 units q.h.s. decrease breakfast humalog to 2 units and increase dinner to 5 units. Advised not to give with breakfast if only drinking protein shake. 5. After hours emergency number reviewed with patient and to call with any hypo or hyperglycemia that is concerning. 6. Twice weekly nonstress tests to be continued. Plans to do second NST at [facility] every week. 7. Emphasized kick counts and to seek obstetrical evaluation with decreased movement. 8. Reviewed preeclampsia symptoms again today. 9. Serial growth every 4 weeks with last assessment next week, reviewed last visit's ultrasound findings today in detail. 10. Delivery initiation between 39-40 weeks, scheduled for IOL 11/30. 11. 12. Diabetes testing 4-5 weeks after delivery with review at 6 week visit. Encouraged to establish care with PCP for annual screening. Assessment & Plan (11/04/2020 4:52 PM CDT): AGA growth with normal CHARLES today. Glucose control: overall good, some post prandial elevations after dinner. Compliant with insulin regimen. Very engaged in treating her diabetes. Reassuring testing. Maternal Medicine recommendations: 1. Maternal- Medicine to manage gestational diabetes 2. Recommend checking blood glucose 4 times daily and keeping a food diary and blood glucose log 3. Send diary and logs weekly for review to the Diabetic Nurse Educator 4. Continue Levemir 8 units q.h.s. and increase meal time insulin with dinner, 4 units. Discussed not to give if not planning to eat and works well when given 15 minutes prior to meal. 5. After hours emergency number reviewed with patient and to call with any hypo or hyperglycemia that is concerning. 6. Twice weekly nonstress tests starting at 34 weeks. Plans to do second NST at [facility] every week. 7. Emphasized kick counts and to seek obstetrical evaluation with decreased movement. 8. Reviewed preeclampsia symptoms. 9. Serial growth every 4 weeks with last assessment at 38 weeks for mode of delivery 10. Delivery initiation between 39-40 weeks 11. 12. Diabetes testing 4-5 weeks after delivery with review at 6 week visit Assessment & Plan (10/21/2020 10:08 AM CDT): 5/4: 43% EFW, 68% AC. Mild polyhydramnios. Glucose control: overall good, some post prandial elevations after dinner Compliant with insulin regimen. Maternal Medicine recommendations: 1. Maternal- Medicine to manage gestational diabetes 2. Recommend checking blood glucose 4 times daily and keeping a food diary and blood glucose log 3. Send diary and logs weekly for review to the Diabetic Nurse Educator 4. Levemir 8 units q.h.s. and start meal time insulin with dinner, 3 units. Discussed not to give if not planning to eat and works well when given 15 minutes prior to meal. 5. After hours emergency number reviewed with patient and to call with any hypo or hyperglycemia that is concerning. 6. Twice weekly nonstress tests starting at 34 weeks, began today. Plans to do second NST at [facility] every week. 7. Emphasized kick counts and to seek obstetrical evaluation with decreased movement. 8. Reviewed preeclampsia symptoms. 9. Serial growth every 4 weeks with last assessment at 38 weeks for mode of delivery 10. Delivery initiation between 39-40 weeks 11. 12. Diabetes testing 4-5 weeks after delivery with review at 6 week visit Assessment & Plan (10/07/2020 4:35 PM CDT): GDMA2 I counseled Tatum Suh regarding the adverse outcomes associated with inadequately controlled diabetes in . These complications include overgrowth with the associated risk of labor and shoulder dystocia, delivery, preeclampsia, hypoglycemia, stillbirth, and her child's risk of metabolic disease in later life secondary to programming of adult disease. Adequate treatment of the disease will minimize these risks. We discussed the dramatic increase in insulin resistance that occurs in the second half of and I outlined a plan for ongoing management. We reviewed the target glucose ranges to minimize excessive growth and optimize outcomes. These are: Fasting 60-90 mg/dl; preprandial 60-105 mg/dl; and 1-hour postprandial < 130 mg/dl. Her dose was and will be: AM PM HS 8 units of Lantus A) Antepartum testing. Recommend daily kick counts Twice weekly NST from 34 weeks until delivery. Serial Ultrasound assessment of growth every 3-4 weeks is recommended, with a reassessment between 37-38 weeks for mode of delivery planning. B.) Timing of Delivery. If spontaneous delivery has not occurred by 39 weeks gestation, delivery may be planned between 39-40 weeks. C) Route of delivery. Vaginal delivery may be anticipated unless the fetus is excessively large or there is an abnormal presentation. Diabetes is associated with about a six-fold risk for shoulder dystocia. Operative vaginal deliveries should be approached with caution. Tthe [employer] recommends delivery for fetuses with estimated weight of 4500 grams or greater in diabetic mothers. D) Glucose control in labor. During labor, capillary glucose values should be checked every 1-2 hours (depending on their stability). Maintenance fluids with 5% dextrose are infused to prevent starvation ketosis. If the glucose values exceed 110 mg/dl, an insulin infusion is recommended. E) Long-term diabetes surveillance. The risk of Tatum Suh developing diabetes outside of over the next five years may be as high as 50%. I recommend that she have a fasting plasma glucose or 2hr GTT at 4 weeks and discussion of the results at her 6 week visit. If her testing is normal, annual glucose screening by her primary care physician is advised. Maternal Medicine recommendations: 1. Maternal- Medicine to manage gestational diabetes 2. Recommend checking blood glucose 4 times daily and keeping a food diary and blood glucose log 3. Send diary and logs weekly for review to the Diabetic Nurse Educator 4. lantus 8 units q.h.s. 5. Twice weekly nonstress tests starting at 34 weeks 6. Serial growth every 4 weeks with last assessment at 38 weeks for mode of delivery 7. Delivery initiation between 39-40 weeks 8. 9. Diabetes testing 4-5 weeks after delivery with review at 6 week visit Second 09/29/2020 Overview (09/29/2020): O+, Ab: Neg, Immune, Rpr-NR, Hbsag-NR, HIV-NR H/h/p: 11.8/35.7/167 Assessment & Plan (10/21/2020 10:11 AM CDT): Breech presentation on last ultrasound. ruben's today show persistent breech presentation. C/o allergic rhinitis. Maternal recommendations: 1. Zyrtec and Flonase sent to pharmacy on file. Discouraged persistent use of Benzedrex due to ephedrine. 2. URI precautions reviewed. 3. Discuss presentation with primary Client Partner and possibility of version if fetus does not change position. Resolved Problems Problem Noted Date Diagnosed Date Resolved Date Polyhydramnios, antepartum complication 10/07/2020 11/04/2020 Assessment & Plan (10/07/2020 4:37 PM CDT): Tatum expressed concern about the mild polyhydramnios. I discussed that the most likely explanation for the polyhydramnios was the gestational diabetes. I voiced that there are different categories of polyhydramnios: mild, moderate and severe. I anticipate that with glycemic control the polyhydramnios will resolve. No biophysical profile testing is needed for mild polyhydramnios. By contrast, moderate to severe polyhydramnios may have different etiologies and risk other than gestational diabetes and those circumstances weekly biophysical profile is recommended. Social History Tobacco Use Types Packs/Day Years [...] Mass Index 23.78 03/10/2022 9:57 AM CDT Plan of Treatment Not on file TATUM SUH Personal/Family 1985 [address] [place] [address]
--- OUTSIDE RECORDS SUMMARY | 2024-06-27 14:48 | XMS_ITS | Clinical Summary ---
Author Organization [facility] [employer] Address [facility] [place] [address] Care Team Providers Care Naval Aircrewman Name Role Phone Unavailable Primary Care Provider Unavailabl e Source Comments [facility],non-owned Affiliates and Associated Physician Practices is amultiple site organization consisting of ambulatory clinics and hospital sitesin [place], [place], [place] and [place]. This disclosure is being madepursuant to the Care Everywhere program and may not contain all information available regarding this patient. Last updated 18.[facility] [employer] Allergies No known active allergies Medications * Be aware that medications may not be up to date on this document. Alwaysverify current medications with the patient. Medication Sig Dispensed Refills Start Date End Date Status Continuous Blood Gluc Sensor (FREESTYLE DAYAMI 2 SENSOR SYSTM) [facility] [place] 2 (two) Each as directed Apply [...] 4:32 PM CDT): Patient's review systems and [place] depression Scale score were both suggestive of [...] continued. Plans to do second NST at [place] every week. 7. Emphasized kick counts and [...] today. Plans to do second NST at [place] every week. 7. Emphasized kick counts and [...] 4:35 PM CDT): GDMA2 I counseled Tatum English regarding the adverse outcomes associated with inadequately [...] deliveries should be approached with caution. Tthe [employer] recommends delivery [...] Long-term diabetes surveillance. The risk of Tatum English developing diabetes outside of over the next [...] precautions reviewed. 3. Discuss presentation with primary Thread Spooler and possibility of version if fetus does [...] those circumstances weekly biophysical profile is recommended. Family History Medical History Relation Name Comments Hypertension Father Diabetes; unknown type Maternal Grandmother Hypertension Mother Diabetes; unknown type Paternal Grandfather Diabetes; unknown type Paternal Grandmother Other - Defects Son one cl ub foot Relation Name Status Comments Father Maternal Grandmother Mother Paternal Grandfather Paternal Grandmother Son Social History Tobacco Use Types Packs/Day Years [...] 03/10/2022 9:57 AM CDT Plan of Treatment Health Maintenance Due Date Last Done Comments PAP SMEAR 1985 HIV SCREENING 2001 HEPATITIS C SCREENING 01/27/2004 DTAP/TDAP/TD VACCINES (1 - Tdap) 2005 HEPATITIS B VACCINE (1 of 3 - 19+ 3-dose series) 2005 PNEUMOCOCCAL VACCINE (1 of 2 - PCV) 2005 COVID-19 VACCINE (3 - 2023-2 5 season) 2024 07/02/2020, 06/11/2020 INFLUENZA VACCINE (#1) 2024 03/08/2018 DEPRESSION SCREENING 06/05/2024 ZOSTER VACCINE (1 of 2) 02/01/2036 HIB VACCINE Aged Out No longer eligi ble based on patient's age to complete this topic HPV VACCINE Aged Out No longer eligi ble based on patient's age to complete this topic MENINGOCOCCAL (Group B) VACCINE Aged Out No longer eligible b ased on patient's age to complete this topic MENINGOCOCCAL VACCINE Aged Out No rocky iliana eligible based on patient's age to complete this topic TATUM ENGLISH Personal/Family 1985 [address] [place] [address]
== END 2024-06-24 16:55 | disposition home or self-care (01) ==
LOC: ANHLAB 16:55
PROVIDERS: Visit Provider Obstetrics & Gynecology
DX: N94.89 Other specified conditions associated with female genital organs and menstrual cycle (principal); O09.529 Supervision of elderly multigravida, unspecified trimester; O24.419 Gestational diabetes mellitus in pregnancy, unspecified control; Z3A.00 Weeks of gestation of pregnancy not specified
CPT/HCPCS: 36415; 81329; 82947; 83036; 84443; 85025; 86592; 86644; 86703; 86747; 86762; 86787; 86850; 86900; 86901; 87086; 87340; G0432

== ENCOUNTER 2024-07-04 09:15 | Outpatient (CLI) | payer OTHER, SELFPAY ==
--- OUTSIDE RECORDS SUMMARY | 2024-07-04 09:42 | XMS_ITS | Clinical Summary ---
Author Organization [facility] [employer] Address [facility] [address] Care Team Providers Care Through Freight Engineer Name Role Phone Unavailable Primary Care Provider Unavailabl e Source Comments [facility],non-owned Affiliates and Associated Physician Practices is amultiple site organization consisting of ambulatory clinics and hospital sitesin [place], [place], [place] and [place]. This disclosure is being madepursuant to the Care Everywhere program and may not contain all information available regarding this patient. Last updated 18.[facility] [employer] Allergies No known active allergies Medications * Be aware that medications may not be up to date on this document. Alwaysverify current medications with the patient. Medication Sig Dispensed Refills Start Date End Date Status Continuous Blood Gluc Sensor (FREESTYLE DAYAMI 2 SENSOR SYSTM) [facility] [place] Use 2 (two) Each as directed Apply [...] 4:32 PM CDT): Patient's review systems and [place] depression Scale score were both suggestive of [...] continued. Plans to do second NST at [place] every week. 7. Emphasized kick counts and [...] today. Plans to do second NST at [place] every week. 7. Emphasized kick counts and [...] deliveries should be approached with caution. Tthe [employer] recommends delivery [...] precautions reviewed. 3. 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
--- OUTSIDE RECORDS SUMMARY | 2024-07-04 09:42 | XMS_ITS | Referral Summary ---
Author Organization [facility] Address [facility] [place] [address] Care Team Providers Care Knotter Name Role Phone Unavailable Primary Care Provider Unavailabl e Source Comments [facility],non-owned Affiliates and Associated Physician Practices is amultiple site organization consisting of ambulatory clinics and hospital sitesin [place], [place], [place] and [place]. This disclosure is being madepursuant to the Care Everywhere program and may not contain all information available regarding this patient. Last updated 18.[facility] [employer] Allergies No known active allergies Medications * Be aware that medications may not be up to date on this document. Alwaysverify current medications with the patient. Medication Sig Dispensed Refills Start Date End Date Status Continuous Blood Gluc Sensor (FREESTYLE DAYAMI 2 SENSOR SYSTM) [facility] [place] Use 2 (two) Each as directed Apply [...] 4:32 PM CDT): Patient's review systems and [place] depression Scale score were both suggestive of [...] continued. Plans to do second NST at [place] every week. 7. Emphasized kick counts and [...] today. Plans to do second NST at [place] every week. 7. Emphasized kick counts and [...] deliveries should be approached with caution. Tthe [employer] recommends delivery [...] precautions reviewed. 3. Discuss presentation with primary Can Closing Machine Tender and possibility of version if fetus does [...] TATUM SUH Personal/Family 1985 [address] [place] [address]
--- OUTSIDE RECORDS SUMMARY | 2024-07-04 09:42 | XMS_ITS | Patient Health Summary ---
Author Organization [facility] Address [address] [place] [address] Care Team Providers Care Station Installer Name Role Phone Unavailable Primary Care Provider Unavailabl e Note from [facility],non-owned Affiliates and Associated Physician Practices is amultiple site organization consisting of ambulatory clinics and hospital sitesin [place], [place], [place] and [place]. This disclosure is being madepursuant to the Care Everywhere program and may not contain all information available regarding this patient. Last updated 18.[facility] [employer] Allergies No known active allergies Medications * Be aware that medications may not be up to date on this document. Alwaysverify current medications with the patient. * Continuous Blood Gluc Sensor (FREESTYLE DAYAMI 2 SENSOR SYSTM) [facility] [place] Use 2 (two) Each as directed [...] CDT Narrative 11/25/2020 3:14 PM CDT ? [facility] Maternal Medicine ? [facility] Care Center ?PHONE: ??FAX: Pat. Name: ?TATUM ENGLISH No: ?[id number] Study Date: ?? 11/25/2020 ??7:49am , Age: ? 1985, 35 Pregnancies: ?? 2, Para 1 Height: ? 62 in Weight: ? 123 lb LMP: ?02/23/2020 GA by LMP: ?39w3d GA by Base: ?? 39w3d ?? HARSHAD: 11/29/2020 GA by US: ? 36w2d ?? HARSHAD: 12/21/2020 GA Selected: ??38w4d (Outside Scan) HARSHAD: ?12/05/2020 Referring MD: Sylvia Foy MD Svp Research And Strategic Analysis: ??Nhi Campos, RDMS, RDCS CPT4: ? 43741,65513 BMI: ?22.49 Hist/Ind: ? GDM-Diet Controlled MEASUREMENTS & AGE ? GROWTH EVALUATION Measurement ??GA ? Range ? Srce %for GA Ratios ----- ---- ------- BPD ??8.7 cm 35w0d (33t2k-63p3z) Hadl BPD 3% FL/BPD 0.81 (0.71 - 0.87) HC ??32.8 cm 37w2d (75p0z-95c0a) Hadl HC ??9% FL/AC ??0.20 (0.20 - 0.24) AC ??34.6 cm 38w4d (12w7c-39i4d) Hadl AC ??67% HC/AC ??0.95 (0.90 - 1.09) FL ?? 7.1 cm 36w1d (77n9t-40w6v) Hadl FL ??7% CI ? 0.73 (0.70 - 0.86) HL ?? 6.0 cm 35w0d (93d1w-85z4r) [place] HL ??<05 RRad 4.9 cm ? (71g8t-81i4x) Natalia RRad24% RUln 5.9 cm 37w0d (40t3e-29k5m) [place] RUln27% RTib 6.0 cm ? [place] RTib ?? RFib 5.9 cm ? (08y2k-53e4r) Natalia RFib39% GA for sonogram 36w2d (95h0o-30n7h) ?? Weight Estimate: based on (BPD,HC,AC,FL) Hadlock [...] <Electronic Signature> ??11/25/2020 03:13pm Lashell Marsh MD [facility] ORDERABLES * SONOGRAM - COMPLETE (10/06/2020 2:35 PM CDT) Anatomical Region Laterality Modality Other 10/06/2020 2:35 PM CDT Narrative 10/06/2020 4:48 PM CDT ? [facility] Prem Maternal Medicine ? Maternal & Care Center ?PHONE: ??FAX: Pat. Name: ?TATUM ENGLISH Pat. No: ?[id number] Study Date: ?? 10/06/2020 ??2:35pm , Age: ? 1985, 35 Pregnancies: ?? 2, Para 1 Height: ? 62 in Weight: ? 123 lb LMP: ?Unknown GA by US: ? 31w2d ?? HARSHAD: 12/06/2020 GA Selected: ??31w3d (From Known E) HARSHAD: ?12/05/2020 Referring MD: Sylvia Foy MD Svp Research And Strategic Analysis: ??Glenda Arias RDMS CPT4: ? 75548,22535 BMI: ?22.49 Hist/Ind: ? GDM-Diet Controlled MEASUREMENTS & AGE ? GROWTH EVALUATION Measurement ??GA ? Range ? Srce %for GA Ratios ----- ---- ------- BPD ??7.9 cm 31w4d (49n5l-89x7v) Hadl BPD 46% FL/BPD 0.74 (0.71 - 0.87) HC ??29.1 cm 32w0d (70p8p-34z6r) Hadl HC ??30% FL/AC ??0.21 (0.20 - 0.24) AC ??28.1 cm 32w1d (76r7u-94d1q) Hadl AC ??68% HC/AC ??1.04 (0.96 - 1.15) FL ?? 5.8 cm 30w4d (48m4s-48e2p) Hadl FL ??15% CI ? 0.76 (0.70 - 0.86) HL ?? 5.2 cm 30w2d (08p9a-92w3a) [place] HL ??30% Cere 4.1 cm 32w5d (08o5l-48j2u) Hill Cere73% GA for sonogram 31w2d (59w1k-43v0s) ?? Weight Estimate: based on (HL,BPD,HC,AC,FL) Avg ? Weight: 1794 gm (1532-2056gm) Had ? : 3lbs, 15oz ? Normal: 1838 gm (1378- 9257gm) Had ? Wt% ? 43% for 31w3d [...] <Electronic Signature> ??10/06/2020 04:48pm Sylvia Foy MD [facility] ORDERABLES
[2024-07-04 09:47] LABS: Glucose Fasting Gestational 81 mg/dL (>/=95)
== END 2024-07-04 09:16 | disposition home or self-care (01) ==
PROVIDERS: Visit Provider Obstetrics & Gynecology
DX: R73.09 Other abnormal glucose (principal)
CPT/HCPCS: 36415; 82951; 82952

== ENCOUNTER 2024-09-11 13:54 | Outpatient (CLI) | payer OTHER, SELFPAY ==
--- NOTE | ~2024-09-11 | US_ITS ---
EXAM EXAMINATION: US OB follow up DATE: 09/11/2024 14:52 CDT INDICATION: Growth, CHARLES COMPARISON: 07/05/2024 and 06/04/2024 TECHNIQUE: Real-time transabdominal obstetric ultrasound. FINDINGS: There is a single intrauterine gestation in vertex presentation. The placenta is anterior, without placenta previa The cervix measures 3.4 cm in length on the submitted images. cardiac activity and movement is noted with a heart rate of 157 beats per minute. Amniotic fluid index measures 22.7 cm which is within the upper limits of normal The following biometric data were obtained: Biparietal diameter (BPD): 7.2 cm; Head circumference (HC): 26.4 cm; Abdominal circumference (AC): 25.1 cm; Femur length (FL): 5.1 cm. These measurements are concordant. Estimated weight is 1233 g +/- 185 g, which correlates with the 6th percentile when 12/01/2024 i s used as estimated date of delivery. As single measurements, these parameters are each equal to the following estimated gestational ages: BPD: 28 weeks 5 days. HC: 28 weeks 5 days. AC: 29 weeks 2 days. FL: 27 week 1 day. estimated gestational age based solely on measurements from this exam i 28 weeks and 3 days +/ 2 week 0 days. IMPRESSION: Single intrauterine gestation in vertex presentation with cardiac activity identified. Amniotic fluid index measures within the upper limits of normal. Estimated gestational age is 28 weeks and 3 days. Estimated weight is within the 6th percentile, as detailed above. Reviewed, dictated and finalized at location A. IMPRESSION: Single intrauterine gestation in vertex presentation with cardiac activit y identified. Amniotic fluid index measures within the upper limits of normal. Estimated gestational age is 28 weeks and 3 days. Estimated weight is within the 6th percentile, as detailed above.
== END 2024-09-11 13:55 | disposition home or self-care (01) ==
LOC: MICIMG 13:56
PROVIDERS: PCP Obstetrics & Gynecology; Visit Provider Obstetrics & Gynecology
DX: O09.523 Supervision of elderly multigravida, third trimester (principal); O24.414 Gestational diabetes mellitus in pregnancy, insulin controlled; Z3A.28 28 weeks gestation of pregnancy
CPT/HCPCS: 76816

== ENCOUNTER 2024-09-14 08:41 | Outpatient (CLI) | payer OTHER, SELFPAY ==
--- OUTSIDE RECORDS SUMMARY | 2024-09-14 08:45 | XMS_ITS | Clinical Summary ---
Author Organization [facility] Address [address] [place] [address] Care Team Providers Care Recycling Assistant Name Role Phone Unavailable Primary Care Provider Unavailabl e Source Comments [facility],non-owned Affiliates and Associated Physician Practices is amultiple site organization consisting of ambulatory clinics and hospital sitesin [place], [place], [place] and [place]. This disclosure is being madepursuant to the Care Everywhere program and may not contain all information available regarding this patient. Last updated 18.[facility] [employer] Allergies No known active allergies Medications * This document contains information received from the source organization and may not represent a complete record from that organization. * Be aware that medications may not be up to date on this document. Alwaysverify current medications with the patient. Continuous Blood Gluc Sensor (FREESTYLE DAYAMI 2 SENSOR SYSTM) [facility] [place] Use 2 (two) Each as directed Apply 1 Libre2 sensor q14 days. 2 Each 4 10/01/19 21 Active Additional Information Patient not taking.Reported on 03/10/2022 Vit-Fe Fumarate-FA ( VITAMIN) 28-0.8 MG tabletIndications : Take 1 tablet by mouth once daily Reasons: Active ferrous sulfate 325 (65 FE) MG tabletIndications :Iron Deficiency Take 325 mg by mouth once daily Reasons: Iron Deficiency Active hydrOXYzine HCl (Atarax) 10 MG tabletIndications :Anxiety Take 1 (one) tablet by mouth 3 times daily Reasons: Feeling Anxious 90 tablet 1 03/10/20 22 Active methylphenidate ER (Concerta) 18 MG tabletIndications :Attention Deficit Hyperactivity Disorder Take 1 (one) tablet by mouth every morning Reasons: Attention Deficit Hyperactivity Disorder 30 tablet 04/13/20 22 Active sertraline (Zoloft) 100 MG tabletIndications :Generalized Anxiety Disorder,Major Depressive Disorder Take 1 (one) tablet by mouth once daily Reasons: Generalized Anxiety Disorder, Major Depressive Disorder 60 tablet 1 04/13/20 22 Active Active Problems Problem Noted Date Diagnosed [...] 4:32 PM CDT): Patient's review systems and [place] depression Scale score were both suggestive of [...] continued. Plans to do second NST at [place] every week. 7. Emphasized kick counts and [...] weeks. Plans to do second NST at [place] every week. 7. Emphasized kick counts and [...] today. Plans to do second NST at [place] every week. 7. Emphasized kick counts and [...] deliveries should be approached with caution. Tthe [employer] recommends delivery [...] precautions reviewed. 3. Discuss presentation with primary Straw Hat Presser and possibility of version if fetus does [...] more drinks on one occasion? 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 Not on file Not on fi le Last Filed Vital Signs Vital Sign Reading Time Taken Comments Blood Pressure 136/88 03/10/2022 9:57 AM CDT Pulse 70 03/10/2022 9:57 AM CDT Temperature 36.5 C (97.7 F) 03/10/2022 9:57 AM CDT Respiratory Rate 18 03/10/2022 9:57 AM CDT [...] - 2023-2 5 season) 2024 07/02/2020, 06/11/2020 DEPRESSION SCREENING 06/05/2024 INFLUENZA VACCINE (Season Ended) 2025 03/08/2018 ZOSTER VACCINE (1 of 2) 02/01/2036 HIB VACCINE Aged Out No longer eligi ble based on patient's age to complete this topic HPV VACCINE Aged Out No longer eligi ble based on patient's age to complete this topic MENINGOCOCCAL (Group B) VACCINE SHARED DECISION-MAKING Aged Out No longer eligible based on patient's age to complete this topic MENINGOCOCCAL GROUPS A/C/Y/W VACCINE Aged Out No longer eligible b ased on patient's age to complete this topic Insurance [address] [place], [place] [id number] [place] [address] CARE ANTHEM ANTHEM ANTHEM
[2024-09-14 09:24] LABS: Basophils Percent Auto 0.2 % (0.2-1.2); Eosinophils Absolute Auto 0.1 K/mm3 (0-0.3); Eosinophils Percent Auto 1.2 % (0-4.4); Hematocrit 36.5 % (37.0-47.0); Hemoglobin 11.7 g/dL (12.0-15.0); Immature Granulocyte Percent A 1.2 % (0-0.5); Lymphocytes Absolute Auto 1.08 K/mm3 (0.9-3.2); Lymphocytes Percent Auto 12.7 % (18.3-44.2); Mean Corpuscular HGB Conc 32.1 g/dl (32-36); Mean Corpuscular Hemoglobin 30.2 pg (26-34); Mean Corpuscular Volume 94.1 fl (80-100); Mean Platelet Volume 10.1 fl (7.4-10.4); Monocytes Absolute Auto 0.4 K/mm3 (0.1-0.6); Monocytes Percent Auto 4.7 % (2.6-8.5); Neutrophils Absolute Auto 6.8 K/mm3 (1.3-6.7); Platelet Count Result 174 k/mm3 (150-375); Red Blood Count 3.88 M/mm3 (4.2-5.4); Red Cell Distribution Width 13.9 % (11.5-14.5); White Blood Count 8.5 K/mm3 (4.5-10.0)
[2024-09-14 10:14] LABS: HIV 1/2 Ab P24 Ag Result Negative (Negative)
[2024-09-14 10:58] LABS: Syphilis IgG/IgM Antibody Negative (Negative)
== END 2024-09-14 08:42 | disposition home or self-care (01) ==
PROVIDERS: Visit Provider Obstetrics & Gynecology
DX: Z34.90 Encounter for supervision of normal pregnancy, unspecified, unspecified trimester (principal)
CPT/HCPCS: 36415; 85025; 86593; 86703; G0432

== ENCOUNTER 2024-09-25 08:25 | Outpatient (RCR) | payer OTHER, SELFPAY ==
[2024-09-14 18:06] VITALS: BP 109/64; PULSE 75
[2024-09-18 11:05] VITALS: BP 112/60; PULSE 88
[2024-09-18 11:06] LABS: Glucose Point of Care 68 mg/dl (65-105)
[2024-09-25 09:45] VITALS: BP 113/70; PULSE 88
== END 2024-11-23 07:07 | disposition home or self-care (01) ==
LOC: ANHOBOP 08:25
PROVIDERS: Visit Provider Obstetrics & Gynecology
DX: O24.419 Gestational diabetes mellitus in pregnancy, unspecified control (principal); O36.5930 Maternal care for other known or suspected poor fetal growth, third trimester, not applicable or unspecified; Z3A.30 30 weeks gestation of pregnancy; Z3A.31 31 weeks gestation of pregnancy
CPT/HCPCS: 59025; 82948

== ENCOUNTER 2024-10-17 08:54 | Outpatient (CLI) | payer OTHER, SELFPAY ==
--- NOTE | ~2024-10-17 | US_ITS ---
Limited Abdominal Sonogram: Real-time sonographic imaging of the right upper quadrant was performed. Clinical History: Polycystic kidney disease Findings: The liver is is no acute fracture through the cysts throughout.. Main portal vein demonstr ates normal direction of flow. The gallbladder is partially distended, and demonstrate 3 mm gallbladd er wall polyp. The common bile duct measures 3 mm. The visualized pancreas, aorta, and IVC are unrem arkable. Impression: Numerous hepatic cysts. 3 mm gallbladder wall polyp. Reviewed, dictated and finalized at location M. Impression: Numerous hepatic cysts. 3 mm gallbladder wall polyp.
--- NOTE | ~2024-10-17 | US_ITS ---
Renal-Bladder ultrasound Clinical History: Polycystic kidney disease Technique: Real-time sonographic imaging of the kidneys and urinary bladder was performed. Findings: The right kidney measures 0.5 cm in length and the left kidney measures 10.8 cm. There is n o hydronephrosis or renal calculus identified. Renal cortical echogenicity is increased. Small bilate ral renal cysts are present, largest in the right kidney measuring 2.7 cm.. The urinary bladder is minimally distended at the time of this exam. No intraluminal echoes are ident ified. No abnormal wall thickening is seen. Impression: Bilateral renal cysts, as above. Echogenic kidneys suggest chronic medical renal disease. Reviewed, dictated and finalized at location . Impression: Bilateral renal cysts, as above. Echogenic kidneys suggest chronic medical renal disease.
--- NOTE | ~2024-10-17 | MR_ITS ---
MRI of the brain Clinical History: Polycystic kidney disease Technique: Axial and sagittal T1-weighted images were acquired. These were followed by axial T2-weigh kiko, diffusion weighted, gradient, and FLAIR images. Findings: No abnormal signal seen in the brain parenchyma. No acute infarct, intracranial hemorrhage, or mass lesion. Ventricles and subarachnoid spaces are unremarkable. Orbits are unremarkable. Paranasal sinuses and m astoid air cells are clear. Major intracranial flow voids appear intact. Sagittal midline structures are intact. IMPRESSION: Normal exam. Reviewed, dictated and finalized at location M. IMPRESSION: Normal exam.
== END 2024-10-17 08:55 | disposition home or self-care (01) ==
PROVIDERS: PCP Obstetrics & Gynecology Maternal & Fetal Medicine; Visit Provider Obstetrics & Gynecology Maternal & Fetal Medicine
DX: N28.1 Cyst of kidney, acquired (principal); R93.421 Abnormal radiologic findings on diagnostic imaging of right kidney; R93.422 Abnormal radiologic findings on diagnostic imaging of left kidney; K76.89 Other specified diseases of liver; K82.4 Cholesterolosis of gallbladder
CPT/HCPCS: 70551; 76705; 76770

== ENCOUNTER 2024-11-13 19:54 | Inpatient (IN) | payer OTHER, SELFPAY ==
[2024-11-13] VITALS (28 sets, daily range): BP systolic 118–137; BP diastolic 77–111; PULSE 59–82; O2SAT 95–99; BMI 27.4
--- OUTSIDE RECORDS SUMMARY | 2024-11-13 20:00 | XMS_ITS | Clinical Summary ---
Author Organization [facility] Address [facility] [facility] [place] [address] Care Team Providers Care Clerk Stenographer Name Role Phone Unavailable Primary Care Provider Unavailabl e Source Comments [facility],non-owned Affiliates and Associated Physician Practices is amultiple site organization consisting of ambulatory clinics and hospital sitesin [place], [place] and [place]. This disclosure is being madepursuant to the Care Everywhere program and may not contain all information available regarding this patient. Last updated 18.[facility] Allergies No known active allergies Medications * This document contains information received from the source organization and may not represent a complete record from that organization. * Be aware that medications may not be up to date on this document. Alwaysverify current medications with the patient. Continuous Blood Gluc Sensor (FREESTYLE DAYAMI 2 SENSOR SYSTM) [facility] Use 2 (two) Each as directed Apply 1 Libre2 sensor q14 days. 2 Each 4 021 Active Vit-Fe Fumarate-FA ( VITAMIN) 28-0.8 MG tabletIndication s: Take 1 (one) tablet by mouth once daily Reasons: Active ferrous sulfate 325 (65 FE) MG tabletIndication s:Iron Deficiency Take 1 (one) tablet by mouth once daily Reasons: Iron Deficiency Active sertraline (Zoloft) 100 MG tabletIndication s:Generalized Anxiety Disorder,Major Depressive Disorder Take 1 (one) tablet by mouth once daily Reasons: Generalized Anxiety Disorder, Major Depressive Disorder 60 tablet 1 022 Active Glucagon (Baqsimi One Pack) 3 MG/DOSE POWD [place] 1 Each into the nose as needed For emergency use only 1 Each 025 Active Continuous Glucose Sensor (Dexcom G7 Sensor) MISCIndications: Gestational diabetes mellitus (GDM) in third trimester, gestational diabetes method of control unspecified (HCC) Use 1 Each continuous 3 Each 5 025 Active insulin glargine (Lantus/Semglee) 100 units/mL pen Inject 10 units at bedtime. Take dosages approximately 12 hours apart. Increase dose as directed due to increasing insulin requirements during . Max total daily dose = 50u 15 mL 5 025 Active insulin pen needle (Novofine) 32G X 6 MM MISCIndications: Gestational diabetes mellitus (GDM) in third trimester, gestational diabetes method of control unspecified (HCC) 1 (one) Each by Injection route 4 times daily 200 Each 025 Active insulin lispro (HumaLOG;ADMelog ) 100 UNIT/ML pen Inject 4 units with meals containing carbohydrates. Increase dose as directed due to increasing insulin requirements during . Max total daily dose 50. 15 mL 025 Active hydrOXYzine HCl (Atarax) 10 MG tabletIndication s:Anxiety Take 1 (one) tablet by mouth 3 times daily Reasons: Feeling Anxious 90 tablet 1 022 2024 Discontinued(L ist Clean-Up) methylphenidate ER (Concerta) 18 MG tabletIndication s:Attention Deficit Hyperactivity Disorder Take 1 (one) tablet by mouth every morning Reasons: Attention Deficit Hyperactivity Disorder 30 tablet 022 2024 Discontinued(L ist Clean-Up) insulin pen needle (Novofine) 32G X 6 MM MISCIndications: Gestational diabetes mellitus (GDM) in third trimester, gestational diabetes method of control unspecified (HCC) 1 (one) Each by Injection route once daily 100 Each 5 025 2024 Discontinued Active Problems Problem Noted Date Diagnosed Date SGA (small for gestational age) 10/02/2024 AMA (advanced maternal age) multigravida 35+, third trimester 10/02/2024 Major depressive disorder, recurrent 03/10/2022 Generalized anxiety disorder 03/10/2022 ADHD (attention deficit hyperactivity disorder) 03/10/2022 GDM (gestational diabetes mellitus) 09/29/2020 Assessment & Plan (11/18/2020 4:26 PM CDT): [...] continued. Plans to do second NST at [place] every week. 7. Emphasized kick counts and [...] weeks. Plans to do second NST at [place] every week. 7. Emphasized kick counts and [...] today. Plans to do second NST at [place] every week. 7. Emphasized kick counts and [...] (10/07/2020 4:35 PM CDT): GDMA2 I counseled Lydia English regarding the adverse outcomes associated with [...] deliveries should be approached with caution. [employer] recommends delivery [...] E) Long-term diabetes surveillance. The risk of Lydia English developing diabetes outside of over the [...] delivery with review at 6 week visit Estimated Date of Delivery Comme nts Yes 11/20/2024 Based on Ultraso und Resolved Problems Problem Noted Date Diagnosed Date Resolved Date Encounter for screening for maternal depression 10/07/2020 10/02/2024 Assessment & Plan (10/21/2020 8:48 AM CDT): Lydia's last visit was suggestive of an active mood disorder. Maternal Medicine recommendations: 1. instructed to present to the emergency room if she has feels like she might hurt herself or hurt others 2. Recommended mental health counseling--referral was initiated during today's encounter 3. Reassess mood at visits and Assessment & Plan (10/07/2020 4:32 PM CDT): Patient's review systems and [place] depression Scale score were both suggestive of an active mood disorder. I recommend mental health counseling. We also discussed that there are acceptable medications to use for depression and anxiety during . Lydia remains at risk for mood deterioration during and . Maternal Medicine recommendations: 1. instructed to present to the emergency room if she has feels like she might hurt herself or hurt others 2. Recommended mental health counseling--referral was initiated during today's encounter 3. Reassess mood at visits and Polyhydramnios, antepartum complication 10/07/2020 11/04/2020 Assessment & Plan (10/07/2020 4:37 PM CDT): Lydia expressed concern about the mild polyhydramnios. I [...] those circumstances weekly biophysical profile is recommended. Second 09/29/2020 10/02/2024 Overview (09/29/2020): O+, Ab: Neg, Immune, Rpr-NR, Hbsag-NR, HIV-NR H/h/p: 11.8/35.7/167 Assessment & Plan (10/21/2020 10:11 AM CDT): Breech presentation on last ultrasound. ruben's today show persistent breech presentation. C/o allergic rhinitis. Maternal recommendations: 1. Zyrtec and Flonase sent to pharmacy on file. Discouraged persistent use of Benzedrex due to ephedrine. 2. URI precautions reviewed. 3. Discuss presentation with primary Child Care Group Leader and possibility of version if fetus does not change position. Encounters Date Type Department Care Team Description 11/13/2024 9:00 AM CDT Hospital Encounter [facility] [address] [place] [phone] Mike Rao MD 11/06/2024 9:03 AM CDT - 11/06/2024 11:59 PM CDT Hospital Encounter [facility] [address] [place] [phone] Ky De Anda DO Head, Barbara B, MD Discharge Disposition: Home or Self Care 11/06/2024 9:00 AM CDT - 11/06/2024 9:02 AM CDT Hospital Encounter [facility] [address] [place] [phone] Ky De Anda DO Head, Barbara B, MD Discharge Disposition: Home or Self Care 11/01/2024 Results Follow-Up [facility] [address] [place] [address] Mike Rao MD 10/30/2024 Orders Only [facility] [address] [place] [address] Mike Rao MD 10/30/2024 Travel 10/23/2024 9:45 AM CDT - 10/23/2024 11:59 PM CDT Hospital Encounter [facility] [address] [place] [phone] Sonali Oliveira MD Discharge Disposition: Home or Self Care 10/23/2024 Travel 10/09/2024 7:30 AM CDT - 10/09/2024 11:59 PM CDT Hospital Encounter [facility] [address] [place] [phone] Mike Rao MD Discharge Disposition: Home or Self Care 10/08/2024 Travel 10/08/2024 Telephone [facility] [address] [place] [phone] Rebekah Sim RN Medication Problem (Baqsimi order. Pharmacy wants to know if she can substitute 2 pack of medication as that is what she has in stock at this time. Orders changed to Baqsimi 2 pack for patient wilth same directions. ) 10/02/2024 9:45 AM CDT - 10/02/2024 11:59 PM CDT Hospital Encounter [facility] [address] [place] [phone] Mike Rao MD Discharge Disposition: Home or Self Care 10/02/2024 Travel 09/30/2024 Telephone [facility] [address] [place] [phone] Rebekah Sim RN Record Request (Called Dr. Foy office regarding patient's 3 hr GTT results. /) from Last 3 Months Family History Medical History Relation Name Comments [...] more drinks on one occasion? 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 Not on file Not on fi le Last Filed Vital Signs Vital Sign Reading Time Taken Comments Blood Pressure 121/70 11/06/2024 9:17 AM CDT Pulse 81 11/06/2024 9:17 AM CDT Temperature 36.5 C (97.7 F) 03/10/2022 9:57 AM CDT Respiratory Rate 16 10/23/2024 10:01 AM CDT Oxygen Saturation - - Inhaled Oxygen Concentration - - Weight 68 kg (150 lb) 11/06/2024 9:17 AM CDT Height 157.5 cm (5' 2) 10/09/2024 8:07 AM CDT Body Mass Index 27.44 10/09/2024 8:07 AM CDT Plan of Treatment Health Maintenance Due Date Last Done Comments HIV SCREENING 2001 HEPATITIS C SCREENING 01/27/2004 DTAP/TDAP/TD VACCINES (1 - Tdap) 2005 HEPATITIS B VACCINE (1 of 3 - 19+ 3-dose series) 2005 PNEUMOCOCCAL VACCINE (1 of 2 - PCV) 2005 PAP SMEAR 2007 PAP with HPV 02/01/2016 COVID-19 VACCINE (3 - 2023-2 5 season) 2024 07/02/2020, 06/11/2020 DEPRESSION SCREENING 06/05/2024 OB-ONE HOUR GLUCOSE 08/14/2024 OB-TDAP CURRENT 08/21/2024 OB-RHOGAM INJECTION 08/28/2024 OB-GROUP B STREP SCREEN 10/16/2024 INFLUENZA VACCINE (Season Ended) 2025 03/08/2018 ZOSTER [...] on patient's age to complete this topic Respiratory Syncytial Virus (RSV) Vaccine Pt: or over 60 yrs (No Doses Required) Completed Procedures Procedure Name Priority Date/Time Associated Diagnosis Comments BIOPHYSICAL PROFILE W NST Routine 11/06/2024 10:06 AM CDT AMA (advanced maternal age) multigravida 35+, third trimester (HCC) SGA (small for gestational age) (HCC) Insulin controlled gestational diabetes mellitus (GDM) in third trimester (HCC) PROTEIN CREATININE RATIO URINE RANDOM PNL 10/30/2024 1:18 PM CDT COMPREHENSIVE METABOLIC PANEL 10/30/2024 1:18 PM CDT BIOPHYSICAL PROFILE W NST Routine 10/23/2024 10:57 AM CDT AMA (advanced maternal age) multigravida 35+, third trimester (HCC) SGA (small for gestational age) (HCC) Insulin controlled gestational diabetes mellitus (GDM) in third trimester (HCC) BIOPHYSICAL PROFILE W NST Routine 10/09/2024 8:10 AM CDT AMA (advanced maternal age) multigravida 35+, third trimester (HCC) SGA (small for gestational age) (HCC) Insulin controlled gestational diabetes mellitus (GDM) in third trimester (HCC) SONOGRAM - COMPLETE Routine 10/02/2024 9 :53 AM CDT SGA (small for gestational age) (HCC) AMA (advanced maternal age) multigravida 35+, third trimester (HCC) Gestational diabetes mellitus (GDM) in third trimester, gestational diabetes method of control unspecified (HCC) from Last 3 Months Results * BIOPHYSICAL PROFILE W NST (11/06/2024 10:06 AM CDT) Only the most recent of3 resultswithin the time period is included. Linked Results Indication ======== Suspected maternal ADPCK GDM-A2 on insulin AMA 39 years declined genetic testing History ====== General History Maternal Mother and Uncle: Polycystic Kidney and Polycystic Liver Disease OB History 3. Para 2 [id number] 1. live 2016. Gest. age 41 w + 0 d. Weight 3,175 g. Sex of child: male. Details: 2. live 2020. Gest. age 39 w + 0 d. Weight 2,863 g. Sex of child: female. Details: Lab Tests Test Date Result Declined Maternal Assessment = Physical Exam Height 157 cm, 5 ft 2 in. Weight 68 kg, 150 lb. Initial weight 61 kg, 134 lb. BMI 27.44 kg/m . Initial BMI 24.51 kg/m . Weight gain 7 kg, 16 lb Method ====== Transabdominal ultrasound. View: Sufficient ========= Rivers . Number of fetuses: 1 Dating ====== Date Details Gest. age HARSHAD LMP 02/13/2024 38 w + 1 d 11/19/2024 Stated HARSHAD 37 w + 6 d 11/21/2024 Assigned dating based on stated HARSHAD, selected on 10/02/2024 37 w + 6 d 11/21/2024 General Evaluation Cardiac activity present. FHR 144 bpm. Presentation: cephalic Placenta: Placental site: anterior Amniotic Fluid Assessment ===== Amount of AF: normal MVP 5.7 cm. CHARLES 13.4 cm. Q1 4.6 cm, Q2 2.0 cm, Q3 1.1 cm, Q4 5.7 cm Biophysical Profile 2: breathing movements 2: Gross body movements 2: tone 2: Amniotic fluid volume NST: reactive 10/10 Biophysical profile score Non Stress Test NST interpretation: reactive. Baseline FHR 140 bpm. Baseline variability: moderate. Accelerations: present. Decelerations: absent. Uterine activity: present, irregular Biometry BPD 84.3 mm 34w 0d <1% Hadlock HC 310.3 mm 34w 5d <1% Hadlock AC 327.5 mm 36w 5d 33% Hadlock Femur 69.4 mm 35w 4d 7% Hadlock Humerus 60.6 mm 35w 1d 18% Ravi HC / AC 0.95 Weight Calculation: EFW 2,789 g 16% Hadlock EFW (lb,oz) 6 lb 2 oz EFW by Hadlock ([id number]) appropriate Growth Overview = Exam date GA BPD (mm) HC (mm) AC (mm) FL (mm) HL (mm) EFW (g) 10/02/2024 32w 6d 75.7 1% 285.9 2% 290.9 58% 59.3 4% 51.5 4% 1889 20% 11/06/2024 37w 6d 84.3 <1% 310.3 <1% 327.5 33% 69.4 7% 60.6 18% 2789 16% Anatomy The following structures appear normal: Abdomen Stomach. Kidneys. Bladder. Impression ========= Single, live, intrauterine at 37w 6d The growth is appropriate. The amniotic fluid volume is normal. The biophysical profile is 03/14 Comment ======== See consultation in [facility] Follow-up ======== Continue weekly BPP with 2x weekly NST Coding ====== Procedures 80573: [place] [id number]: Biophysical Profile W [facility] [employer] PACS Anatomical Region Laterality Modality Other 11/06/2024 10:0 6 AM CDT Mike Rao MD [facility] ORDERABLES Edited Result - Final * (ABNORMAL) COMPREHENSIVE METABOLIC PANEL (10/30/2024 1:18 PM CDT) Glucose 109(H) 65 - 99 mg/dL [facility] Comment: Fasting reference interval For someone without known diabetes, a glucose value between 100 and 125 mg/dL is consistent with prediabetes and should be confirmed with a follow-up test. BUN 13 7 - 25 mg/dL [facility] Creatinine 0.74 0.50 - 0.97 mg/dL [facility] eGFR by Cystatin C 106 > OR = 60 mL/min/1. 73m2 [facility] BUN/Creatinine Ratio SEE NOTE: 6 - 22 (calc) [facility] Comment: Not Reported: BUN and Creatinine are within reference range. Sodium 134(L) 135 - 146 mmol/L [facility] Potassium 4.2 3.5 - 5.3 mmol/L [facility] Chloride 102 98 - 110 mmol/L [facility] CO2 24 20 - 32 mmol/L [facility] Calcium 8.7 8.6 - 10.2 mg/dL [facility] Protein Total 6.3 6.1 - 8.1 g/dL [facility] Albumin 3.5(L) 3.6 - 5.1 g/dL [facility] Globulin Total 2.8 1.9 - 3.7 g/dL (calc) [facility] Albumin/Globulin Ratio 1.3 1.0 - 2.5 (calc) [facility] Bilirubin Total 0.4 0.2 - 1.2 mg/dL [facility] Alkaline Phosphatase 143(H) 31 - 125 U/L [facility] AST 22 10 - 30 U/L [facility] ALT 18 6 - 29 U/L [facility] Comment: Test Performed at: [employer] [facility] [address] [place] [address] LYNDSAY EDWARDS MD 10/30/2024 1:18 PM CDT 10/30/2024 1:22 PM CDT Mike Rao MD LAB - CHEMISTRY ORDERABLES Final Result [facility] [id number] [place] [address] * PROTEIN CREATININE RATIO URINE RANDOM PNL (10/30/2024 1:18 PM CDT) Creatinine Urine 36 20 - 275 mg/dL [facility] Protein/Creatini ne Ratio 167 24 - 184 mg/g creat [facility] Protein/Creatini ne Ratio 0.167 0.024 - 0.184 mg/mg creat [facility] Protein Random Urine 6 5 - 24 mg/dL [facility] Comment: REPORT COMMENT: FASTING:NO COLLECTION KIT GIVEN TO PATIENT. PATIENT ADVISED TO RETURN. Test Performed at: [employer] [email or web address] [id number] [facility] [place] [id number] LYNDSAY EDWARDS MD 10/30/2024 1:18 PM CDT 10/30/2024 1:22 PM CDT us Mike Rao MD LAB - URINE CHEMISTRY ORDERABLES Final Result [facility] [address] [place] [address] * SONOGRAM - COMPLETE (10/02/2024 9:53 AM CDT) Linked Results Indication ======== SGA fetus on outside scan GDM-A2 on insulin AMA 39 years declined genetic testing History ====== General History Maternal Mother and Uncle: Polycystic Kidney and Polycystic Liver Disease OB History 3. Para 2 [id number] 1. live 2016. Gest. age 41 w + 0 d. Weight 3,175 g. Sex of child: male. Details: Vaginal delivery 2. live 2020. Gest. age 39 w + 0 d. Weight 2,863 g. Sex of child: female. Details: Vaginal delivery Lab Tests Test Date Result Declined Maternal Assessment Physical Exam Height 157 cm, 5 ft 2 in. Weight 64 kg, 141 lb. Initial weight 61 kg, 134 lb. BMI 25.79 kg/m . Initial BMI 24.51 kg/m . Weight gain 3 kg, 7 lb Method ====== Transabdominal ultrasound. View: Good view ========= Rivers . Number of fetuses: 1 Dating ====== Date Details Gest. age HARSHAD LMP 02/13/2024 33 w + 1 d 11/19/2024 Stated HARSHAD 32 w + 6 d 11/21/2024 U/S 10/02/2024 based upon AC, BPD, Femur, HC 31 w + 3 d 12/01/2024 Assigned dating based on stated HARSHAD, selected on 10/02/2024 32 w + 6 d 11/21/2024 General Evaluation Cardiac activity present. FHR 156 bpm. Presentation: cephalic Placenta: Placental site: anterior Umbilical cord: Cord vessels: 3 vessel cord. Insertion site: normal insertion Amniotic fluid: Amount of AF: normal. MVP 6.3 cm. CHARLES 22.3 cm. Q1 6.3 cm, Q2 4.9 cm, Q3 5.1 cm, Q4 6.0 cm Biometry BPD 75.7 mm 30w 3d 1% Hadlock HC 285.9 mm 31w 3d 2% Hadlock Cerebellum tr 43.3 mm 58% [place] AC 290.9 mm 33w 1d 58% Hadlock Femur 59.3 mm 30w 6d 4% Hadlock Humerus 51.5 mm 30w 0d 4% Ravi HC / AC 0.98 -/- Hadlock Weight Calculation: EFW 1,889 g 20% Hadlock EFW (lb,oz) 4 lb 3 oz EFW by Hadlock ([id number]) appropriate Growth Overview Exam date GA BPD (mm) HC (mm) AC (mm) FL (mm) HL (mm) EFW (g) 10/02/2024 32w 6d 75.7 1% 285.9 2% 290.9 58% 59.3 4% 51.5 4% 1889 20% Anatomy The following structures appear normal: Head / Neck Cranium. Lateral ventricles. Choroid plexus. Midline falx. Cavum septi pellucidi. Cerebellum. Cisterna magna. Face Lips. Profile. Nose. Nasal bone. Orbits. Heart / Thorax 4-chamber view. RVOT view. LVOT view. 3-vessel view. 0-suycay-tzhztgl view. Situs. Aortic arch view. Interventricular septum. Great vessels. Right lung. Left lung. Diaphragm. Abdomen Cord insertion. Stomach. Kidneys. Bladder. Genitals. Spine Cervical spine. Thoracic spine. Lumbar spine. Sacral spine. Extremities / Skeleton Arms. Legs. Feet. The following structures could not be adequately visualized: Heart / Thorax Bicaval view. Ductal arch view. Extremities / Skeleton Hands. Non Stress Test NST interpretation: reactive. Baseline FHR 150 bpm. Baseline variability: moderate. Accelerations: present Biophysical Profile 2: breathing movements 2: Gross body movements 2: tone 2: Amniotic fluid volume NST: reactive 03/14 Biophysical profile score Impression ========= * Rivers IUP at 33 weeks of gestation by stated EDC * Referred to [facility] for obstetrical U/S & request for consult secondary to: Advanced maternal age (AMA) 39 years at the EDC Gestational diabetes mellitus (GDM) A2 Suspected growth restriction (FGR) / intrauterine growth restriction (IUGR) * Today's ultrasound (U/S) findings: Living rivers intrauterine fetus growth is in the normal range Amniotic fluid volume appears mildly increased Placenta is anterior & clear of the internal cervical os Biophysical profile (BPP) is normal (03/14) Maternal liver & kidneys contain multiple various-sized cysts Comprehensive anatomic survey: possible liver & renal cysts COUNSELING & RECOMMENDATIONS (PLEASE SEE FULL CONSULT IN EPIC) * In my best medical opinion, I would advise: Please also see today's separate note from our [facility] Coordinator [employer] With suspected maternal ADPCK: Ultrasound of liver & kidneys by Radiology Maternal echocardiogram Maternal MRI angiogram of brain without contrast Complete metabolic panel & 24-hour urine protein Referral to Nephrology If desired, formal Genetics consult Follow-up with our [facility] Nurse Practitioner to review labs & clinical management in 1 week Follow-up with our [facility] Coordinator [employer] to review CBGs & DM management in 1 week Follow-up assessment: U/S for growth in 4 weeks Continue 2x-weekly NST & weekly BPP Delivery planning (timing, mode, location): too early to determine at present Please notify the baby's [employer]k Top Hat Body Maker of the above history Follow-up ======== 1 week Coding ====== Procedures [id number]: US Preg Uterus Detailed [id number]: Biophysical Profile W NST [facility] PACS Anatomical Region Laterality Modality Other 10/02/2024 9:53 AM CDT us Mike Rao MD [facility] ORDERABLES Edited Result - Final from Last 3 Months Insurance [facility]
--- OUTSIDE RECORDS SUMMARY | 2024-11-13 20:00 | XMS_ITS | Encounter Summary ---
Author Organization [facility] Address [address] [place] [address] Care Team Providers Care House Repairer Name Role Phone Unavailable Primary Care Provider Unavailabl e Encounter Details Date Type Department Care Team (Late st Contact Info) Description 11/01/2024 Results Follow-Up [facility] [address] [place] [address] Mike Rao MD [address] [facility] [facility] [address] [address] [place] [address] Social History Tobacco Use Types Packs/Day Years Used Date Smoking Tobacco: Some Days Cigarettes Smokeless Tobacco: Never Alcohol Use Standard Drinks/Week Comments Never 0 [...] Not on file Not on fi le documented as of this encounter Plan of Treatment Not on file documented as of this encounter Visit Diagnoses Not on filedocumented in this encounter
--- OUTSIDE RECORDS SUMMARY | 2024-11-13 20:00 | XMS_ITS | Encounter Summary ---
Author Organization [facility] Address [address] [place] [address] Care Team Providers Care Dressing Room Attendant Name Role Phone Unavailable Primary Care Provider Unavailabl e Reason for Visit * Reason Comments Ultrasound Biophysical Profile Non-stress Test Follow-up Maternal Medicine Diabetes Encounter Details Date Type Department Care Team (Late st Contact Info) Description 11/13/2024 9:00 AM CDT Hospital Encounter [facility] [address] [place] [phone] Mike Rao MD [address] [address] Social History Tobacco Use Types Packs/Day [...] documented as of this encounter Visit Diagnoses Diagnosis Polycystic kidney- Primary Polycystic kidney, unspecified type AMA (advanced maternal age) multigravida 35+, third trimester ([facility]) Insulin controlled gestational diabetes mellitus (GDM) in third trimester ([facility]) Poor growth affecting management of mother in third trimester, single or unspecified fetus ([facility]) with 38 completed weeks gestation ([facility]) 39 weeks gestation of ([facility]) state, incidental documented in this encounter
[2024-11-13] MEDS: miSOPROStol 25 MCG TABLET 50 MCG BUCCAL (20:40)
[2024-11-13 21:10] LABS: Basophils Percent Auto 0.2 % (0.2-1.2); Eosinophils Absolute Auto 0.1 K/mm3 (0-0.3); Eosinophils Percent Auto 0.9 % (0-4.4); Hematocrit 38.1 % (37.0-47.0); Hemoglobin 12.5 g/dL (12.0-15.0); Immature Granulocyte Absolute 0.08 K/mm3 (0.00-0.031); Immature Granulocyte Percent A 0.9 % (0-0.5); Lymphocytes Absolute Auto 1.41 K/mm3 (0.9-3.2); Lymphocytes Percent Auto 15.2 % (18.3-44.2); Mean Corpuscular HGB Conc 32.8 g/dl (32-36); Mean Corpuscular Hemoglobin 29.5 pg (26-34); Mean Corpuscular Volume 89.9 fl (80-100); Mean Platelet Volume 10.3 fl (7.4-10.4); Monocytes Absolute Auto 0.6 K/mm3 (0.1-0.6); Monocytes Percent Auto 5.9 % (2.6-8.5); Neutrophils Absolute Auto 7.2 K/mm3 (1.3-6.7); Neutrophils Percent Auto 76.9 % (45.5-73.1); Platelet Count Result 179 k/mm3 (150-375); Red Blood Count 4.24 M/mm3 (4.2-5.4); Red Cell Distribution Width 13.2 % (11.5-14.5); White Blood Count 9.3 K/mm3 (4.5-10.0)
[2024-11-13 21:13] LABS: Alanine Aminotransferase 27 U/L (6-35); Albumin Level 3.8 g/dL (3.5-5.1); Alkaline Phosphatase 162 U/L (38-126); Anion Gap 10 mmol/L (4-12); Aspartate Amino Transferase 41 U/L (14-36); Bilirubin,Total 0.4 mg/dL (0.2-1.3); Blood Urea Nitrogen 15 mg/dL (7-17); Calcium 9.4 mg/dL (8.4-10.2); Carbon Dioxide 19 mmol/L (22-30); Chloride 103 mmol/L (98-107); Estimated Glomerular Filt Rate > 60; Glucose 103 mg/dL (65-110); Potassium 3.9 mmol/L (3.4-5.0); Sodium 132 mmol/L (137-145); Total Protein 6.9 g/dL (6.3-8.2)
[2024-11-13 21:41] LABS: Syphilis IgG/IgM Antibody Non-Reactive (Nonreactive)
[2024-11-13 21:58] LABS: HIV 1/2 Ab P24 Ag Result Negative (Negative)
[2024-11-13] MEDS: INSULIN GLARGINE (*BKC) 100 UNITS/ML 10 UNITS SUB-Q (22:57)
--- NOTE | 2024-11-13 23:08 | LDADM ---
This patient, Lydia English, was admitted to Labor/Delivery/Recovery 108 on 11/13/24 at 19:54. Plans for labor, pain management and were discussed with patient. Patient/family oriented to hospital policies and general routines including ID bracelet, bed and alarms, visiting hours, pain management, procedures, bathroom and other care routines, personal items, smoking policy, room service/diet and guest tray routines, security routines, and visiting hours. Patient/Family are encouraged to report perceived risks to care and to ask questions if they do not understand what they are told or what they should do. See [facility] for further documentation.
[2024-11-14] VITALS (56 sets, daily range): BP systolic 124–156; BP diastolic 78–112; PULSE 43–88; RESP 16–18; TEMP 36.3–36.8; O2SAT 93–100
[2024-11-14 00:57] LABS: Glucose Point of Care 98 mg/dl (65-105)
[2024-11-14] MEDS: fentaNYL CITRATE INJ (*CRX) 100 MCG/2 ML VIAL IV PUSH (02:39)
[2024-11-14] MEDS: LIDOCAINE 1% LOCAL INJ 20 ML VIAL (02:41)
--- NOTE | 2024-11-14 02:56 | WPDOBADMIT ---
Obstetrics - Admit Note Admission Note: record reviewed. No pertinent additions to the history and/or any subsequent changes in the physical findings that are not consistent with the expected course of the were found. Additions to the history and/or subsequent changes in the physical findings follow. @ 39.0wks IOL due to uncontrolled A2GDM. complicated by: - AMA; MFM for NIPT/anatomy -- needs ASA 81mg qhs - H/o A2GDM, early 1 hour elevated, 3 hour abnormal -- A2GDM now; glargine 10u qhs--- MFM co-management -- ANT twice weekly - ADHD- atomoxetine - h/o PPD; zoloft 50mg - Maternal polycystic liver/kidney -- imaging pending (MRI, US of liver/kidney, echo PENDING). -Brain MRI- normal exam -abdomen US- multiple hepatic cysts and gallbladder polyp -Renal US- Small bilateral renal cysts are present, largest in the right kidney measuring 2.7 cm Cervix: 2/thick/high continuous monitoring cytotec 50mcg buccal x2 if not lianne too frequently GBS neg anesthesia consult PRN pain
--- NOTE | 2024-11-14 03:00 | P.PCNOB_ITS ---
OB - Vaginal Delivery Note Procedure Delivery date: 11/14/24 Events: Gestational Diabetes (A2 - on insulin) Induction method: Per Misoprostol Protocol Delivery monitor: External FHT and External Uterine Route of delivery: Laceration Description: Perineal - 1st Degree Delivery repair: vicryl Specimen: Yes (placenta) Quantitative Blood Loss (ml): 350 Anesthesia type: Local Disposition: Floor Complications: No immediate complications [place] Baby Date of : 11/14/24 Time of : 02:31 Gestational Age by Date: 40 gender: Female Weight (pounds): 6 Weight (ounces): 10 presentation: vertex Placenta delivery description: Expressed Cord Vessel Description: 3 Vessels score one minute: 8 score five minutes: 9 Narrative: Lydia presented for medical induction of labor and received Cytotec 50 mcg buccal x1. She began lianne frequently but her cervical check at midnight was found to be 2.5cm. She continued to have painful contractions and had spontaneous rupture of membranes and was involuntarily pushing. She was examined by the nurse and found to be completely dilated. From rupture of membranes to delivery of the infant was approximately 9 minutes and the female was delivered by nursing with the manager diabetes on-call present at delivery. I presented at 3 minutes of life with the in the warmer. Cord gases and cord blood had already been collected by nursing. Placenta was still inside tube. With Pitocin running and gentle downward traction on the cord, the placenta delivered without complication. Brisk bleeding was then noted and bimanual massage was performed and good uterine tone with minimal bleeding was then noted. She received fentanyl 100 mcg IV to help with pain. She was examined and a small first-degree perineal laceration was identified. She was anesthetized with 1% lidocaine without epinephrine and the laceration was repaired in the normal fashion using 2-0 Vicryl. Good hemostasis was noted. Her uterus was firm with minimal bleeding. Sponge, lap, instrument, and needle counts were correct at the end the procedure. Mom and baby were left bonding now birthing suite in stable condition.
[2024-11-14] MEDS: OXYTOCIN 30 UNITS/NS 500 ML 30 UNITS/500 ML BAG 125 UNITS IV CONT (03:21)
[2024-11-14] MEDS: BENZOCAINE 20% AER SPR (*SP) 56 GM CAN 1 SPRAY TOPICAL (04:40)
[2024-11-14] MEDS: WITCH HAZEL 40 PADS 1 PAD TOPICAL (04:40)
[2024-11-14] MEDS: ACETAMINOPHEN 325 MG TABLET 650 MG PO ×2 (07:27→21:10)
[2024-11-14] MEDS: MULTIVIT/MIN/PREN/FOL AC/IRON TABLET 1 TAB PO (07:29)
[2024-11-14] MEDS: IBUPROFEN 600 MG TABLET PO ×2 (07:31→16:15)
[2024-11-14 07:44] LABS: Glucose Point of Care 81 mg/dl (65-105)
--- NOTE | 2024-11-14 08:38 | S_PTH ---
PATIENT: Lydia English LOC: [facility] U#:[id number] AGE/SX: 39/F ROOM: 288 RE11/13/[address]: Guerrero Abbasi MD : [id number] BED: 00 DIS: 11/16/2024 SPEC #: [id number] RECD: 11/14/24 08:53 STATUS: PEDRO REQ #: [id number] ELIZABETH: 11/14/24 08:[address]: Sylvia Foy DEPT: [facility] Surgical RECD BY: Zita Reyna ENTERED: 11/14/24 08:53 SP TYPE: Surgical OTHR DR: UNKNOWN,DOCTOR Tissues: A - Placenta Procedures: Hematoxylin and Eosin Stain Gross and Microscopic Level 5
--- NOTE | 2024-11-14 10:14 | PC.NURSE ---
Introductions were made, then consulted with patient to assess needs related to . Upon entering patients room, mother has infant at the breast nursing. Mother is able to independently latch and works well with her infant. latched optimally to the [left] breast in [cross cradle] position. Education given to the mother of how to visualize the suckling (with good rocking jaw motion), swallows (dropping of the lower jaw) and how to listen for drinking at the breast (the ka sound). Infant was [able] to maintain latch without pain to mother protecting the nipple with optimal positioning and latching. Mother voiced understanding of information, demonstrated learning and will call if there is a request for assistance.
[2024-11-14] MEDS: SERTRALINE HCL 50 MG TABLET PO (21:11)
[2024-11-15 06:01] LABS: Hematocrit 37.6 % (37.0-47.0); Hemoglobin 12.2 g/dL (12.0-15.0); Mean Corpuscular HGB Conc 32.4 g/dl (32-36); Mean Corpuscular Hemoglobin 29.3 pg (26-34); Mean Corpuscular Volume 90.2 fl (80-100); Mean Platelet Volume 10.5 fl (7.4-10.4); Platelet Count Result 184 k/mm3 (150-375); Red Blood Count 4.17 M/mm3 (4.2-5.4); Red Cell Distribution Width 13.2 % (11.5-14.5); White Blood Count 12.6 K/mm3 (4.5-10.0)
--- NOTE | 2024-11-15 07:01 | P.PNOB_ITS ---
OB - PN: Subj Subjective Date/time seen: 11/15/24 07:01 Narrative: PPD#1 Lydia reports doing well today. 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 Her pain is controlled. She is tolerating regular diet, voiding, passing gas, and ambulating without issues. She is breast feeding. She would like to go home today. OB - PN: Obj Data Labs 11/15/24 04:32 11/13/24 20:31 Labs: Laboratory Results - last 24 hr 11/14/24 11/15/24 07:34 04:32 WBC 12.6 H RBC 4.17 L Hgb 12.2 Hct 37.6 MCV 90.2 MCH 29.3 MCHC 32.4 RDW 13.2 Plt Count 184 MPV 10.5 H POC Capillary Glucose 81 OB - PN A/P Assessment and Plan (1) Vaginal delivery: Code(s): O80 - Encounter for full-term uncomplicated delivery Status: Acute Plan day: 1 Plan: routine care Comments: - PO pain meds - Regular diet - Ambulation and hydration encouraged - Continue putting baby to breast q2-3hr Time Spent With Patient Time: Total time spent is greater than 50% in coordination of care (as documented) at patient's floor/unit and/or counseling patient: Review of Systems 2 Constitutional: Constitutional: Denies chills, Denies fever(s) and Denies headache(s) Eyes: Eyes: Denies change in vision ENT: Denies dizziness and Denies headache(s) Cardiovascular: Cardiovascular: Denies chest pain, Denies palpitations and Denies dyspnea Respiratory: Respiratory: Denies cough and Denies dyspnea Gastrointestinal: Gastrointestinal: Denies nausea and Denies vomiting Neurologic: Denies dizziness and Denies headache(s) Endocrine: Endocrine: Denies palpitations Exam 2 Const: General: cooperative, comfortable and no acute distress O rientation/consciousness: patient oriented x3 Resp: Effort & Inspection: normal respiratory effort Auscultation: clear to auscultation bilaterally Cardio: Rate: regular rate GI: Inspection: non-distended GI Palp: No abdominal tenderness and Yes Soft to palpation Auscultation: normal bowel sounds : Other: fundus firm Skin: General skin exam: normal color Neuro: General: patient oriented x3 Extrem: General: normal to inspection Psych: Appearance: grossly normal Affect: normal affect Attitude: c ooperative
[2024-11-15 07:40] VITALS: BP 128/81; PULSE 99; RESP 16; TEMP 37.1; O2SAT 99
[2024-11-15] MEDS: WITCH HAZEL 40 PADS 1 PAD TOPICAL (07:44)
[2024-11-15] MEDS: BENZOCAINE 20% AER SPR (*SP) 56 GM CAN 1 SPRAY TOPICAL (07:44)
[2024-11-15] MEDS: ACETAMINOPHEN 325 MG TABLET 650 MG PO (07:45)
[2024-11-15] MEDS: MULTIVIT/MIN/PREN/FOL AC/IRON TABLET 1 TAB PO (07:45)
[2024-11-15 21:00] VITALS: BP 126/84; PULSE 88; RESP 16; TEMP 37; O2SAT 98
[2024-11-15] MEDS: SERTRALINE HCL 50 MG TABLET PO (21:14)
[2024-11-15] MEDS: IBUPROFEN 600 MG TABLET PO (21:14)
[2024-11-16] MEDS: IBUPROFEN 600 MG TABLET PO (05:43)
--- NOTE | 2024-11-16 07:22 | P.PNOB_ITS ---
OB - PN: Subj Subjective Date/time seen: 11/16/24 07:22 Patient comments: pain well controlled, tolerating diet and other (Decreasing lochia.) baby status: doing well and nursing well OB - PN: Obj Data Labs 11/15/24 04:32 11/13/24 20:31 OB - PN A/P Assessment and Plan (1) Vaginal delivery: Code(s): O80 - Encounter for full-term uncomplicated delivery Status: Acute Plan day: 2 Plan: discharge home and other Comments: Patient doing well. Follow up 4-6 weeks. Discharge instructions provided. Time Spent With Patient Time: Total time spent is greater than 50% in coordination of care (as documented) at patient's floor/unit and/or counseling patient: Time with patient: less than 15 minutes Review of Systems 2 Review of Systems: All systems reviewed & are unremarkable except as noted in HPI and below Constitutional: Constitutional: Reports no additional constitutional complaints Cardiovascular: Cardiovascular: Denies dyspnea Respiratory: Respiratory: Denies dyspnea Gastrointestinal: Gastrointestinal: Reports no additional gastrointestinal complaints and Denies abdominal pain Genitourinary: Genitourinary: Reports no additional female genitourinary complaints Exam 2 Const: General: cooperative Orientation/consciousness: oriented to person, oriented to place and oriented to time HENMT: Face/Nose/Sinus: Normal external nose present Eyes: General: appearance normal, both eyes and all related structures Resp: Effort & Inspection: normal respiratory effort GI: Inspection: normal to inspection Skin: General skin exam: normal color Neuro: General: oriented to person, oriented to place and oriented to time Extrem: General: normal to inspection and no calf tenderness Psych: Appearance: grossly normal Mental Status: mental status grossly normal Affect: normal affect Other: Abd: fundus firm below umbilicus, nontender Perineum: healing Ext: nontender
--- NOTE | 2024-11-16 07:22 | P.DS_ITS ---
DS: Admitting Diagnosis Discharge Date 11/16/24 Admitting Diagnosis Induction of labor. Gestational diabetes DS: Discharge Diagnosis Discharge Diagnosis (1) Vaginal delivery: Code(s): O80 - Encounter for full-term uncomplicated delivery Status: Acute DS: Summary Hospital Course Reason for hospitalization: Induction of labor Hospital Course: Patient admitted for [facility]. She had a vaginal delivery. She did well . She was ambulating without problems, adequate pain control. She was discharged to home on day 2. Status at Discharge Functional status at discharge: independent ambulation Time Spent with Patient Time attestation: Total time spent providing and/or coordinating discharge services: Exam Const: General: cooperative Orientation/consciousness: oriented to person, oriented to place and oriented to time HENMT: Face/Nose/Sinus: Normal external nose present Eyes: General: appearance normal, both eyes and all related structures Resp: Effort & Inspection: normal respiratory effort GI: Inspection: normal to inspection Skin: General skin exam: normal color Neuro: General: oriented to person, oriented to place and oriented to time Extrem: General: normal to inspection and no calf tenderness Psych: Appearance: grossly normal Mental Status: mental status grossly normal DS: Data Data Completed and Pending Pending studies at discharge: Pending at discharge 11/14/24 08:38 Surgical [PTH] Routine Discharge Plan Discharge Attending physician on discharge: Sylvia Foy Consulting providers: Guerrero Abbasi Discharging Clinician: Guerrero Abbasi Anticipated Discharge Date/Time: 11/16/24 07:43 Patient Disposition: Home Activity: may shower and pelvic rest Diet: regular Discharge Instructions: May continue Sertraline. Patient Instructions: Antibiotic Form Patient Language: Portuguese Stand Alone Forms: General Discharge Information Follow-up/Referrals: Sylvia Foy MD [Physician] - Call for Appointment Discharge Medications: Continued DHA 200 mg capsule 200 mg PO HS Discontinued insulin glargine-yfgn 100 unit/mL (3 mL) insulin pen 10 unit subcut QPM Qty: 15 3RF Patient Comments: Hasn't started yet, she was instructed to wait for M appointment first insulin lispro 100 unit/mL insulin pen 4 unit SUBCUT .dinner No Action ferrous sulfate [Feosol] 325 mg (65 mg iron) tablet 325 mg PO DAILY sertraline 50 mg tablet 50 mg PO DAILY Qty: 90 3RF Date of admission: 11/13/24 19:54 Primary Care Provider: UNKNOWN,DOCTOR Admitting Provider: Sylvia Foy Attending physician on admission: Sylvia Foy Condition: Stable
[2024-11-16 08:10] VITALS: BP 107/64; PULSE 69; RESP 14; TEMP 36.6; O2SAT 97
--- NOTE | 2024-11-16 10:00 | PC.NURSE ---
Reviewed standard discharge information with patient. She has breast fed both of her other children and is familiar with pumping as well. She has her own breast pump but has not initiated pumping at this time. She has been topping baby off with formula after some feedings per her preference. She requested hydrogel pads to take home in case she gets sore nipples. Parents are encouraged to take the feeding log and continue to track feedings and output for the first week . Offered outpatient resources with [facility] [place]. Patient has the Mom/Baby Guide for further education and reference for common concerns, phone numbers, and guidance on when to call the doctor. A feeding plan was added to the ?s discharge plan. Patient states that she has no further questions or concerns regarding .?
[2024-11-18 08:16] VITALS: BP 121/66; PULSE 80; RESP 16; TEMP 36.6; O2SAT 100
[2024-11-18 16:59] LABS: Lidocaine <1.0 mg/L (1.5-5.0)
== END 2024-11-16 15:36 | disposition home or self-care (01) | DRG 807 ==
LOC: ANHOB2 11-16 07:43 → ANHLDR 11-19 07:58
PROVIDERS: Admitting Provider Obstetrics & Gynecology; Visit Provider Obstetrics & Gynecology
DX: O24.424 Gestational diabetes mellitus in childbirth, insulin controlled (principal); Z37.0 Single live birth; O70.0 First degree perineal laceration during delivery; Z3A.39 39 weeks gestation of pregnancy
CPT/HCPCS: 36415; 80053; 80176; 82948; 85025; 85027; 86593; 86703; 86850; 86900; 86901; 88307; A9270; G0432; J1815; J2003; J2590; J3010

== ENCOUNTER 2024-12-23 01:20 | Day surgery (SDC) | payer OTHER, SELFPAY ==
[2024-12-19 11:00] VITALS: BMI 24.7
--- NOTE | 2024-12-19 11:06 | PC.NURSE ---
Report to the Outpatient Waiting Room, entrance under the green pavilion located off [facility], at time _1045_ on date _[id number]_. Planned Procedure Time: _1245_.? Time changes happen often and if your time is changed the preop area will call you the afternoon before. - You and your visitor will be asked to self-screen and do not enter if you have any COVID symptoms. Please call surgeon if you need to reschedule. - A mask is optional within the hospital at this time. Patients may have clear liquids (water, carbonated beverages, clear teas, apple juice) until 3 hours prior to surgery with a maximum of 20 ounces. - No food from midnight until time of surgery and no smoking, or chewing tobacco (or any form of nicotine). No chewing gum, candy or mints. Take only the following medications with a SIP of water on the morning of surgery: ___Sertraline____ DO NOT STOP ANY OF YOUR OTHER PRESCRIPTION MEDICATIONS PRIOR TO SURGERY EXCEPT THE FOLLOWING Hold all vitamins and supplements for 3 days per anesthesiologist. Medications to discontinue per physician Date to take last [id number] Please no make-up, nail czech, hairspray, perfume, deodorant, or body powder the day of surgery.? No jewelry (including any body piercings) or valuables the day of surgery, leave them at home.? Please take a shower or bath the night before, or the morning of, surgery with an antibacterial soap.? Wear comfortable, loose fitting clothing.? - Jewelry must be removed prior to entering the operating room.? Rings and piercings that are not removed may be cut off. - The hospital will not accept responsibility for valuables.? - Please leave all valuables, including medications, at home the day of surgery. If you are going home after surgery, a licensed driver license technician must drive you home.? - NO public transportation without another adult if you receive anesthesia. - We recommend that an adult stay with you for 24 hours following discharge. - We also recommend that you do not drive, make important decision, drink alcoholic beverages, or take any drugs that were not prescribed by your health care provider for at least 24 hours after your discharge time. Follow any additional instructions given to you from your surgeon. Telephone instructions given to __Mary___and asked if any additional questions and then verbalized understanding. Patient advised to call surgeon office or pre surgery nurse liaison [phone] if any additional questions.
[2024-12-23] VITALS (8 sets, daily range): BP systolic 114–132; BP diastolic 54–80; PULSE 60–73; RESP 12–20; TEMP 36.6; O2SAT 98–100
--- OUTSIDE RECORDS SUMMARY | 2024-12-23 01:25 | XMS_ITS | Encounter Summary ---
Author Organization [facility] Address [address] [place] [address] Care Team Providers Care Electrical Maintenance Mechanic Name Role Phone Unavailable Primary Care Provider Unavailabl e Encounter Details Date Type Department Care Team (Late st Contact Info) Description 11/01/2024 Results Follow-Up [facility] - DEVELOPMENT INTERN [address] [place] [address] Mike Rao MD [address] [place] [address] Social History Tobacco Use Types [...]
--- OUTSIDE RECORDS SUMMARY | 2024-12-23 01:25 | XMS_ITS | Clinical Summary ---
Author Organization [facility] [employer] Address [facility] [place] [address] Care Team Providers Care Automotive Services Manager Name Role Phone Unavailable Primary Care Provider Unavailabl e Source Comments [facility] [employer],non-owned Affiliates and Associated Physician Practices is amultiple site organization consisting of ambulatory clinics and hospital sitesin [place], [place], [place] and [place]. This disclosure is being madepursuant to the Care Everywhere program and may not contain all information available regarding this patient. Last updated 18.[facility] [employer] Allergies No known active allergies Medications * This document contains information received from the source organization and may not represent a complete record from that organization. * Be aware that medications may not be up to date on this document. Alwaysverify current medications with the patient. Continuous Blood Gluc Sensor (FREESTYLE DAYAMI 2 SENSOR SYSTM) [facility] Use 2 (two) Each as directed Apply 1 Libre2 sensor q14 days. 2 Each 4 1 Active Vit-Fe Fumarate-FA ( VITAMIN) 28-0.8 MG tabletIndicatio ns: Take 1 (one) tablet by mouth once daily Reasons: Active ferrous sulfate 325 (65 FE) MG tabletIndicatio ns:Iron Deficiency Take 1 (one) tablet by mouth once daily Reasons: Iron Deficiency Active sertraline (Zoloft) 100 MG tabletIndicatio ns:Generalized Anxiety Disorder,Major Depressive Disorder Take 1 (one) tablet by mouth once daily Reasons: Generalized Anxiety Disorder, Major Depressive Disorder 60 tablet 1 2 Active Glucagon (Baqsimi One Pack) 3 MG/DOSE POWD [place] 1 Each into the nose as needed For emergency use only 1 Each 5 Active Continuous Glucose Sensor (Dexcom G7 Sensor) MISCIndications :Gestational diabetes mellitus (GDM) in third trimester, gestational diabetes method of control unspecified (HCC) Use 1 Each continuous 3 Each 5 5 Active insulin glargine (Lantus/Semglee ) 100 units/mL pen Inject 10 units at bedtime. Take dosages approximately 12 hours apart. Increase dose as directed due to increasing insulin requirements during . Max total daily dose = 50u 15 mL 5 5 Active insulin pen needle (Novofine) 32G X 6 MM MISCIndications :Gestational diabetes mellitus (GDM) in third trimester, gestational diabetes method of control unspecified (HCC) 1 (one) Each by Injection route 4 times daily 200 Each 5 5 Active insulin lispro (HumaLOG;ADMelo g) 100 UNIT/ML pen Inject 4 units with meals containing carbohydrates. Increase dose as directed due to increasing insulin requirements during . Max total daily dose 50. 15 mL 5 5 Active Active Problems Problem Noted Date Diagnosed [...] continued. Plans to do second NST at [facility] every week. 7. Emphasized kick counts and [...] weeks. Plans to do second NST at [facility] every week. 7. Emphasized kick counts and [...] today. Plans to do second NST at [facility] every week. 7. Emphasized kick counts and [...] deliveries should be approached with caution. Tthe [employer] recommends delivery [...] 4:32 PM CDT): Patient's review systems and [place] depression Scale score were both suggestive of [...] precautions reviewed. 3. Discuss presentation with primary Pole Climber and possibility of version if fetus does not change position. Encounters Date Type Department Care Team Description 11/06/2024 9:03 AM CDT - 11/06/2024 11:59 PM CDT Hospital Encounter [facility] [place] [address] PolKy marquez DO Head, Barbara B, MD Discharge Disposition: Home or Self Care 11/06/2024 9:00 AM CDT - 11/06/2024 9:02 AM CDT Hospital Encounter [facility] [address] [place] [address] [place] De Anda DO Head, Barbara B, MD Discharge Disposition: Home or Self Care 11/01/2024 Results Follow-Up [facility] [address] [place] [address] Mike Rao MD 10/30/2024 Orders Only [facility] [address] [place] [address] Mike Rao MD 10/30/2024 Travel 10/23/2024 9:45 AM CDT - 10/23/2024 11:59 PM CDT Hospital Encounter [facility] [address] [place] [address] Sonali Oliveira MD Discharge Disposition: Home or Self Care 10/23/2024 Travel 10/09/2024 7:30 AM CDT - 10/09/2024 11:59 PM CDT Hospital Encounter [facility] [address] [place] [address] Mike Rao MD Discharge Disposition: Home or Self Care 10/08/2024 Travel 10/08/2024 [facility] [address] [place] [id number] Rebekah Sim RN Medication Problem (Baqsimi order. Pharmacy wants to know if she can substitute 2 pack of medication as that is what she has in stock at this time. Orders changed to Baqsimi 2 pack for patient wilth same directions. ) 10/02/2024 9:45 AM CDT - 10/02/2024 11:59 PM CDT Hospital Encounter [facility] [address] [id number] Mike Rao MD Discharge Disposition: Home or Self Care 10/02/2024 Travel 09/30/2024 Telephone [facility] [address] [place], [place] [id number] Rebekah Sim RN Record Request (Called Dr. [...] 2 - PCV) 2005 PAP SMEAR 2007 HPV VACCINE (1 - 3-dose SCDM series) 2013 COVID-19 VACCINE (3 - 2023-2 5 season) 2024 07/02/2020, 06/11/2020 DEPRESSION SCREENING 06/05/2024 OB-ONE HOUR GLUCOSE 08/14/2024 OB-TDAP CURRENT 08/21/2024 OB-RHOGAM INJECTION 08/28/2024 OB-GROUP B STREP SCREEN 10/16/2024 INFLUENZA VACCINE (#1) 2025 03/08/2018 ZOSTER VACCINE (1 of 2) [...] Liver Disease OB History 3. Para 2 [id number] 1. live 2016. Gest. age 42 w [...] volume NST: reactive 03/14 Biophysical profile score Non Stress Test NST [...] 6 lb 2 oz EFW by Hadlock ([id number]-HJ-LC-FL) appropriate Growth Overview = Exam date GA [...] is 03/14 Comment ======== See consultation in [facility] Follow-up ======== Continue weekly BPP with 2x weekly NST Coding ====== Procedures 61789: [place] [address]: Biophysical Profile W NST [email or web address] PACS Anatomical Region Laterality Modality Other 11/06/2024 10:0 6 AM CDT Mike Rao MD [facility] ORDERABLES Edited Result - Final * (ABNORMAL) [...] 29 U/L [facility] Comment: Test Performed at: [place] [address] LYNDSAY EDWARDS MD 10/30/2024 1:18 PM CDT 10/30/2024 1:22 PM CDT Mike Rao MD LAB - CHEMISTRY ORDERABLES Final Result Performing Organization Address [facility] de Phone Number [facility] [address] [place] [address] * PROTEIN CREATININE RATIO URINE RANDOM PNL (10/30/2024 1:18 PM CDT) Creatinine Urine 36 20 - 275 mg/dL [facility] Protein/Creatini ne Ratio 167 24 - 184 mg/g creat [facility] Protein/Creatini ne Ratio 0.167 0.024 - 0.184 mg/mg creat [facility] Protein Random Urine 6 5 - 24 mg/dL [facility] Comment: REPORT COMMENT: FASTING:NO COLLECTION KIT GIVEN TO PATIENT. PATIENT ADVISED TO RETURN. Test Performed at: [facility] [place] [address] LYNDSAY EDWARDS MD 10/30/2024 1:18 PM CDT 10/30/2024 1:22 PM CDT Mike Rao MD LAB - URINE CHEMISTRY ORDERABLES Final Result Performing Organization Address [facility] Co de Phone Number [facility] [id number] [place] [address] * SONOGRAM - COMPLETE (10/02/2024 9:53 AM CDT) Linked Results Indication ======== SGA fetus on outside scan GDM-A2 on insulin AMA 39 years declined genetic testing History ====== General History Maternal Mother and Uncle: Polycystic Kidney and Polycystic Liver Disease OB History 3. Para 2 [id number] 1. live 2016. Gest. age 41 w [...] 4 lb 3 oz EFW by Hadlock (IUM-IB-OX-FL) appropriate Growth Overview Exam date GA BPD [...] view. RVOT view. LVOT view. 3-vessel view. 7-vjwqfg-ttfxtkq view. Situs. Aortic arch view. Interventricular septum. [...] gestation by stated EDC * Referred to [facility] for obstetrical U/S & request for consult [...] also see today's separate note from our [facility] Mechanical Manufacturing Engineer With suspected maternal ADPCK: Ultrasound of liver & kidneys by Radiology Maternal echocardiogram Maternal MRI angiogram of brain without contrast Complete metabolic panel & 24-hour urine protein Referral to Nephrology If desired, formal Genetics consult Follow-up with our [facility] Nurse Practitioner to review labs & clinical management in 1 week Follow-up with our [facility] Mechanical Manufacturing Engineer to review CBGs & DM management in 1 week Follow-up assessment: U/S for growth in 4 weeks Continue 2x-weekly NST & weekly BPP Delivery planning (timing, mode, location): too early to determine at present Please notify the baby's District Court Justice of the above history Follow-up ======== 1 week Coding ====== Procedures 63397: US Preg Uterus Detailed 23260: Biophysical Profile W NST [facility] [employer] PACS Anatomical Region Laterality Modality Other 10/02/2024 9:53 AM CDT Mike Rao MD [facility] ORDERABLES Edited Result - Final from Last 3 Months Insurance [facility] [employer] SELF PAY NO INSURANCE Member Subscriber Plan / Payer (Ef fective for All Dates) Name:Lydia English Member ID:Not on file Relation to Subscriber:Not on file Name:LYDIA ENGLISH Subscriber ID:Not on file (Home) Address: [address] [address] Payer ID:Not on file Group ID:Not on file Type:Self Pay Address: [place], [place] , [address] [place] [address] [employer]
--- NOTE | 2024-12-23 09:47 | WPDHPUPDATE1 ---
History and Physical Update Update Date/Time: 12/23/24 09:47 History and Physical has been reviewed, including an updated exam of the patient. There are NO changes in the patient's condition. Risks, benefits, and alternatives have been discussed and questions answered. Patient agrees to proceed with laparoscopic bilateral salpingectomy.
--- NOTE | 2024-12-23 11:50 | WPDANESEPPF ---
Anes - Initial Pre Proc Eval Procedure: Operation Date: 12/23/24 12:15 Proposed Procedures p Laparoscopic Bilateral Salpingectomy - Sylvia Foy MD Date/Time: 12/23/24 11:50 Surgeon: Sylvia Foy MD Pre Op Diagnosis: Desires Sterilization Patient Data Age: 39 Gender: F Height: 1.57 m Weight: 61.4 kg Allergies Allergy/AdvReac Type Severity Reaction Status Date / Time No Known Allergies Allergy Verified 12/19/24 10:59 Home Medications ?Medication ?Instructions ?Recorded ?Confirmed ?Type docosahexaenoic acid 200 mg 200 mg PO HS 05/08/24 12/19/24 History capsule ( DHA) sertraline 50 mg tablet 50 mg PO DAILY #90 tabs 09/25/24 12/19/24 Rx acetaminophen 500 mg tablet 1,000 mg (2 x 500 mg) PO TID #60 12/23/24 Rx tabs docusate sodium 100 mg capsule 100 mg PO BID #90 caps 12/23/24 Rx (Colace) ibuprofen 800 mg tablet 800 mg PO TID #30 tabs 12/23/24 Rx oxycodone 5 mg tablet 5 mg PO Q4H PRN pain #15 tabs 12/23/24 Rx Patient hx anesthesia problems: none Family hx anesthesia problems: none Results Review: All pre-operative results and documents have been reviewed as part of the pre-operative evaluation. [facility] Past Medical History Medical History Polycystic kidney disease Polycystic liver disease Suppression of menses ADHD PCOS (polycystic ovarian syndrome) Family History Family History Grandparent Diabetes mellitus Mother Hypertension Liver disease Mother Polycystic kidney disease Father Heart block bundle branch Social History Social History Smoking status: Never smoker Second hand tobacco smoke exposure: No Smoking end date: 02/04/20 Alcohol intake: never Substance use: never Substance use type: does not use Do You Feel Safe in your Home?: Yes Lack of Transportation: No Lack of Food: Never True Current Housing: I Have Housing Concerned About Future Housing: No Difficulty Paying Gas/Electric Bills: No Difficulty Paying for Meds: No Currently Unemployed: No Education: Bachelor's Degree Difficulty w/ Childcare or Family Care: No Living arrangements: with family Occupation/Education: occupation 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 Gender identity (if verbalized by the patient): Female Sexual Orientation (if Verbalized by the Patient): Straight or Heterosexual Spiritual care concerns: No Anes - Eval Final PreProcedure Day of Procedure 12/23/24 11:50 Patient weight: normal Heart: regular rate and rhythm Lungs: clear to auscultation Airway: Mallampati scale class II Neurological: alert and oriented Last oral intake: >/= 8 hours ASA classification: III Emergent: no Anesthetic plan: proceed Anesthesia type and monitoring: general ETT and standard monitoring Results Review: All pre-operative results and documents have been reviewed as part of the pre-operative evaluation. Informed Consent: The patient's anesthetic plan and its attendant risks and benefits were discussed with the patient/family/POA. Questions were solicited and answers provided to the satisfaction of the patient/family/POA.
[2024-12-23] MEDS: LACTATED RINGERS 1,000 ML 30 ML IV CONT (12:10)
[2024-12-23] MEDS: ACETAMINOPHEN 500 MG TABLET 1000 MG PO (12:15)
[2024-12-23] MEDS: KETOROLAC 15 MG/ML VIAL (*BKC) IV PUSH (12:16)
[2024-12-23] MEDS: BUPIVACAINE/EPINEPHRINE 0.5% 50 ML VIAL 20 ML INFILTRATE (13:06)
--- NOTE | 2024-12-23 13:37 | S_PTH ---
PATIENT: Lydia English LOC: [facility] U#:[id number] AGE/SX: 39/F ROOM: RE12/23/[address]: Sylvia Foy MD : 1985 BED: DIS: 12/23/2024 SPEC #: [id number] RECD: 12/23/24 14:18 STATUS: PEDRO REQ #: [id number] ELIZABETH: 12/23/24 13:[address]: Sylvia Foy DEPT: [facility] Surgical RECD BY: Zita Reyna ENTERED: 12/23/24 14:18 SP TYPE: Surgical OTHR DR: OPTOMETRIC TECHNICIAN PHYSICIAN Tissues: A - Fallopian Tube Single B - Fallopian Tube Single Procedures: Gross and Microscopic Level 2 Hematoxylin and Eosin Stain
--- NOTE | 2024-12-23 14:04 | P.OP_ITS ---
Procedure Note - Detailed Date of Procedure 12/23/24 Pre-op Diagnosis Desires Sterilization Post-op Diagnosis Same Procedure Performed Laparoscopic bilateral salpingectomy Surgeon Sylvia Foy MD Nurse Ortho Mely Anesthesia General and Local (18cc of 0.5% Marcaine w/ epi) Findings Uterus sounded to 7.5cm. Normal appearing cervix. Normal bilateral ovaries. Normal fallopian tubes. Good hemostasis at end of case. Description of Procedure Lydia was taken to the operating room where she was placed under general endotracheal anesthesia without complications. She was then prepped and draped in the usual sterile fashion in the dorsal lithotomy position with her legs in low Cayden stirrups and her arms tucked at her side with a strap over her chest. A time-out was performed and no preoperative antibiotics were indicated. My attention was turned down below where her bladder was drained via straight catheterization. A bivalve speculum was then placed within the vagina where the cervix was easily identified. The anterior lip of the cervix was grasped with a single-tooth tenaculum, the uterus was sounded, and a diagnostic uterine manipulator was placed without complications. My gloves were changed and my attention was turned to her abdomen. An umbilical incision was made, and a 5 mm trocar was placed under direct visualization without complications. Once intra- abdominal placement was confirmed the abdomen was insufflated with carbon dioxide gas. She was then placed in Trendelenburg and two additional 5 mm ports were placed in the left and right lower quadrants under direct visualization without complications. The above findings were noted. The left fallopian tube was then elevated and the mesosalpinx was serially clamped, coagulated, transected using the LigaSure device until the proximal end of the fallopian tube was reached. The proximal end of the fallopian tube was cross clamped, coagulated and transected. The tube was then removed from the abdomen. The same procedure was then performed on the right side without any complications. Good hemostasis was noted. All instruments were removed from the abdomen. The insufflation was released and the trocars were removed. The 3 laparoscopic incision sites were reapproximated using 4-0 Monocryl and covered with Dermabond. The incisions were then infiltrated using 0.5% Marcaine with epinephrine. The uterine manipulator was removed. Sponge, lap, instrument, and needle counts were correct at the end of the procedure. Patient was awoken from general anesthesia and taken to recovery with plans of same-day discharge home. Estimated Blood Loss 10 IV Fluids 800 Urine Output 200 Pathology Yes (left and right fallopian tubes) Complications No immediate complications Condition Stable Disposition Same day [facility] Billing Surgery - Charge Forward: Surgery Billing
== END 2024-12-23 16:05 | disposition home or self-care (01) ==
PROVIDERS: Visit Provider Obstetrics & Gynecology
PROC: (CPT 49320; principal; 2024-12-23 12:15)
DX: Z30.2 Encounter for sterilization (principal)
CPT/HCPCS: 58661; 88302; A9270; J1100; J1885; J2003; J2250; J2270; J2405; J2704; J7120